=== PATIENT | female | born 1950 | race Caucasian/White ===

== ENCOUNTER 2019-12-05 14:20 | Outpatient (CLI) | payer MEDICARE, SELFPAY ==
--- NOTE | ~2019-12-05 | MM_ITS ---
EXAMINATION: MM screening stoney BI w ramya HISTORY: Screening mammogram, family history of breast cancer in her mother. TECHNIQUE: Craniocaudal and mediolateral oblique 3-D tomosynthesis images were obtained and synthetic 2-D images were generated. CAD analysis was submitted and interpreted. COMPARISON: 12/02/2018, 11/29/2017, 06/05/2017, 05/25/2017 BREAST PARENCHYMAL COMPOSITION: There are scattered areas of fibroglandular density. FINDINGS: There is a chronic area of subtle architectural distortion in the upper outer quadrant of t he right breast which is unchanged since 2016. There is no evidence of suspicious mass, calcification , or architectural distortion to suggest malignancy in either breast. There has been no suspicious in terval change. IMPRESSION: 1. No mammographic evidence of malignancy. 2. Recommend routine screening mammography in one year. BI-RADS Category 2: Benign finding(s). Reviewed, dictated and finalized at location A. [facility]
== END 2019-12-05 14:21 | disposition home or self-care (01) ==
LOC: ANHIMG 14:26
PROVIDERS: PCP Internal Medicine; Visit Provider Obstetrics & Gynecology
DX: Z12.31 Encounter for screening mammogram for malignant neoplasm of breast (principal)
CPT/HCPCS: 77063; 77067

== ENCOUNTER 2019-12-12 13:15 | Outpatient (CLI) | payer MEDICARE, SELFPAY ==
--- NOTE | ~2019-12-12 | US_ITS ---
EXAMINATION: US thyroid DATE: 12/12/2019 15:05 INDICATION: Nontoxic multinodular goiter TECHNIQUE: Multiple ultrasound images of the thyroid were obtained. COMPARISON: 12/20/2018 and 12/10/2014 FINDINGS: The right thyroid lobe measures 4.9 x 1.6 x 1.6 cm. The left thyroid lobe measures 6.4 x 2.1 x 1.9 c m. No significant interval change in multiple lateral thyroid nodules. There are few cystic or predo minantly cystic nodules in the right thyroid, the largest a simple anechoic nodule measuring 5 mm max imal diameter. There are at least 3 additional lesions measure 3 mm or smaller in maximal dimensions. No significant interval change in 3 larger nodules in the left thyroid lobe. The most cephalad is a well-defined wider than tall solid hypoechoic nodule (TI-RADS 4, moderately suspicious , FNA if >=1.5 cm, annual followup is >1 cm) which measures 2.0 x 1.1 x 1.2 cm and with previous biopsy demonstrati ng benign follicular nodule . In the inferior right thyroid lobe there is a well-defined most entire ly cystic nodule with small peripheral solid components and a couple thick internal septations (TI-RA DS 1, benign, no FNA recommended) which currently measures 2.6 x 2.2 x 2.7 cm. In the intervening mid left thyroid there is a well-defined round 10 x 9 x 9 mm solid hypoechoic nodule with shadowing mikaela pheral rim calcification, also TI-RADS 4. IMPRESSION: 1. Stable multinodular goiter with prior benign biopsy and no subsequent interval change of the only nodule meeting criteria for biopsy. Reviewed, dictated and finalized at location A. AND CREDIT MANAGER IMPRESSION: 1. Stable multinodular goiter with prior benign biopsy and no subsequent interv al change of the only nodule meeting criteria for biopsy.
== END 2019-12-12 13:16 | disposition home or self-care (01) ==
PROVIDERS: PCP Internal Medicine
DX: E04.2 Nontoxic multinodular goiter (principal)
CPT/HCPCS: 76536

== ENCOUNTER 2020-12-09 14:49 | Outpatient (CLI) | payer MEDICARE, SELFPAY ==
--- NOTE | ~2020-12-09 | MM_ITS ---
EXAMINATION: MM screening stoney BI w ramya HISTORY: Screening mammogram TECHNIQUE: Craniocaudal and mediolateral oblique 3-D tomosynthesis images were obtained and synthetic 2-D images were generated. CAD analysis was submitted and interpreted. COMPARISON: 12/05/2019, 12/02/2018 bilateral digital screening mammogram examinations 11/29/2017 diagnostic right digital mammogram 06/05/2017 diagnostic right digital mammogram and limited right breast ultrasound 05/25/2017 bilateral digital screening mammogram BREAST PARENCHYMAL COMPOSITION: The breasts are heterogeneously dense, which may obscure small masses . FINDINGS: Stable focal architectural distortion in the upper right breast on MLO view is likely relat ed to prior reportedly benign breast biopsy. There is no evidence of suspicious mass, calcification, or architectural distortion to suggest malignancy in either breast. There has been no suspicious inte rval change. IMPRESSION: 1. No mammographic evidence of malignancy. 2. Recommend routine screening mammography in one year. BI-RADS Category 2: Benign finding(s). Reviewed, dictated and finalized at location A. 2 SYSTEMS PROGRAMMER
== END 2020-12-09 14:50 | disposition home or self-care (01) ==
PROVIDERS: PCP Internal Medicine; Visit Provider Obstetrics & Gynecology
DX: Z12.31 Encounter for screening mammogram for malignant neoplasm of breast (principal)
CPT/HCPCS: 77063; 77067

== ENCOUNTER 2021-09-25 12:00 | Emergency (ER) | payer MEDICARE, SELFPAY ==
--- NOTE | ~2021-09-25 | CT_ITS ---
EXAMINATION: CT abdomen pelvis w con EXAM DATE: 09/25/2021 16:21 INDICATION: Lower abdominal pain. TECHNIQUE: Spiral CT of the abdomen and pelvis was performed following intravenous injection of 100 m L Omnipaque 350. Axial, coronal and sagittal images of the abdomen and pelvis were reviewed. The do se-length product (DLP) for this examination was 222.01 mGy-cm. The exposure was tailored according to patient size (auto mA exposure control), and iterative reconstruction (ASIR) was used as additiona l dose reduction technique. Comparison is made to prior examination from 09/09/2016. FINDINGS: The liver, spleen, adrenal glands and pancreas are unremarkable. Gallbladder is unremarkab le. No biliary obstruction. Portal and splenic veins are patent. Kidneys enhance symmetrically. T here is no hydronephrosis. The uterus is not identified and has likely been surgically resected. T he bladder is unremarkable. There is no retroperitoneal or pelvic lymphadenopathy. There is mild s cattered arteriosclerotic disease. The appendix is normal. There is moderate sigmoid diverticulosis. There is adjacent inflammation and wall thickening most likely uncomplicated diverticulitis. Inflammatory cancer not excludable. No perf oration or abscess. The stomach and small bowel are unremarkable. There is expected amount of colon ic stool. No free intraperitoneal gas. The heart is normal in size. There are no pericardial or pleural effusions. The lung bases are unremarkable. There is 8 mm sclerotic focus in the left pubis unchanged, bone island. IMPRESSION: Findings consistent with acute uncomplicated sigmoid diverticulitis. Inflammatory cancer not excludable. Reviewed, dictated and finalized at location A. 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 Inflammatory cancer not excludable.
[2021-09-25 12:44] VITALS: BP 158/85; PULSE 75; RESP 16; TEMP 36.6; O2SAT 98
--- NOTE | 2021-09-25 15:23 | ED.ABDPAIN ---
HPI - Abdominal Pain General Chief Complaint: Abdominal Pain Stated Complaint: abd pain Time Seen by Provider: 09/25/21 14:54 History of Present Illness HPI narrative: Patient is a 70-year-old female who presents ER with abdominal pain. Ongoing for the last day. Located in her lower abdomen. Feels similar to previous diverticulitis bouts. Sharp cramping pain that radiates into her back. She woke up in a pool of sweat today. Concerned she is having fevers as well. No nausea or vomiting. No known changes to diet. No diarrhea or blood in stool. Related Data Home Medications Medication Instructions Recorded Confirmed aspirin 81 mg tablet,delayed 81 mg PO DAILY 11/05/19 06/01/21 release cyclobenzaprine 10 mg tablet 10 mg PO .qhs tablet 11/05/19 01/10/21 ergocalciferol (vitamin D2) 62.5 2,500 unit PO DAILY 11/05/19 06/01/21 mcg (2,500 unit) capsule multivitamin-calcium carb chewable 1 tablet PO DAILY 11/05/19 06/01/21 tablet calcium carbonate 260 mg calcium 260 mg PO DAILY 05/11/20 06/01/21 (648 mg) tablet calcium polycarbophil 625 mg tablet 1,250 mg PO DAILY 05/11/20 06/01/21 lactobacillus combination no.9 4 4,000 mmu cells PO DAILY 05/11/20 06/01/21 billion cell capsule acyclovir 5 % topical ointment 1 applic TOPICAL 6XD 11/22/20 06/01/21 dicyclomine 10 mg capsule 10 mg PO ONCE cap 11/22/20 06/01/21 triamcinolone acetonide 0.1 % 1 applic TOPICAL .prn g 11/22/20 06/01/21 topical cream Allergies Allergy/AdvReac Type Severity Reaction Status Date / Time Penicillins Allergy Mild Rash Verified 09/25/21 15:30 silicone tape Allergy Intermediate large Uncoded 09/25/21 15:30 water blisters Review of Systems Review of Systems: All systems reviewed & are unremarkable except as noted in HPI and below Constitutional: Constitutional: Denies chills, Reports fever(s) and Denies weakness Comments: Sweats ENT: Denies nasal congestion and Denies sore throat Cardiovascular: Cardiovascular: Denies chest pain, Denies rapid heart rate and Denies radiating jaw, neck or arm pain Respiratory: Respiratory: Denies cough and Denies dyspnea Gastrointestinal: Gastrointestinal: Reports abdominal pain, Denies diarrhea, Denies nausea and Denies vomiting Genitourinary: Genitourinary: Denies nocturia and Denies dysuria PMFSH Past Medical History Medical History Hypertension IBS (irritable bowel syndrome) Thyroid goiter Surgical History Surgical History History of trigger finger left hand 3rd and 4th finger Hx of abdominoplasty Hx of bilateral cataract extraction Hx of blepharoplasty bilateral Hx of repair of right rotator cuff Hx of right breast biopsy Right excisional breast in 1992 Hx of vaginal hysterectomy Family History Family History Father Family history of alcoholism, Onset Age: 84 Mother CHF (congestive heart failure) Failure to thrive Sibling Hypertension Heart disease Family history of alcoholism CAD (coronary artery disease) PAD (peripheral artery disease) PVD (peripheral vascular disease) Arthritis Heart valve replaced AAA (abdominal aortic aneurysm) Other Breast cancer Social History Social History Smoking packs per day: 1 Smoking cigarettes per day: 20.0 Years smoked: 20 Smoking pack-years: 20.00 Smoking status: Former smoker Tobacco type: cigarettes Second hand tobacco smoke exposure: No Smoking end date: 10/15/90 Alcohol intake: current Drinks per week: 21 Alcohol use details: Cocktails and wine daily Substance use: never Exam Narrative: GENERAL: Well-appearing, well-nourished, and in no acute distress. HEAD: Normocephalic, atraumatic. CHEST: Clear to auscultation. No respiratory distress. HEART: Regular rate a
[2021-09-25] MEDS: SODIUM CHLORIDE 0.9% IV 1,000 ML 999 ML IV CONT (15:35)
[2021-09-25] MEDS: MORPHINE SULFATE (*CRX) 4 MG/ML INJ IV PUSH (15:36)
[2021-09-25 15:49] LABS: Basophils Absolute Auto 0.1 K/mm3 (0.0-0.1); Basophils Percent Auto 0.3 % (0.2-1.2); Eosinophils Absolute Auto 0.1 K/mm3 (0-0.3); Eosinophils Percent Auto 0.7 % (0-4.4); Hematocrit 37.4 % (37.0-47.0); Hemoglobin 12.6 g/dL (12.0-15.0); Immature Granulocyte Absolute 0.04 K/mm3 (0.00-0.031); Immature Granulocyte Percent A 0.3 % (0-0.5); Lymphocytes Absolute Auto 2.16 K/mm3 (0.9-3.2); Lymphocytes Percent Auto 14.3 % (18.3-44.2); Mean Corpuscular HGB Conc 33.7 g/dl (32-36); Mean Corpuscular Hemoglobin 31.3 pg (26-34); Mean Platelet Volume 9.4 fl (7.4-10.4); Monocytes Absolute Auto 1.5 K/mm3 (0.1-0.6); Monocytes Percent Auto 9.8 % (2.6-8.5); Neutrophils Absolute Auto 11.3 K/mm3 (1.3-6.7); Neutrophils Percent Auto 74.6 % (45.5-73.1); Platelet Count Result 218 k/mm3 (150-375); Red Blood Count 4.02 M/mm3 (4.2-5.4); Red Cell Distribution Width 12.5 % (11.5-14.5); White Blood Count 15.1 K/mm3 (4.5-10.0)
[2021-09-25 16:02] LABS: Alanine Aminotransferase 48 U/L (4-35); Albumin Level 4.5 g/dL (3.5-5.1); Alkaline Phosphatase 96 U/L (38-126); Anion Gap 10 mmol/L (8-16); Aspartate Amino Transferase 59 U/L (14-36); Bilirubin,Total 0.8 mg/dL (0.2-1.3); Blood Urea Nitrogen 13 mg/dL (7-17); Calcium 9.6 mg/dL (8.4-10.2); Carbon Dioxide 28 mmol/L (22-30); Chloride 99 mmol/L (98-107); Estimated CRCL calculation 51 ml/min; Estimated Glomerular Filt Rate > 60; Glucose 113 mg/dL (65-110); Potassium 3.4 mmol/L (3.4-5.0); Sodium 137 mmol/L (137-145)
== END 2021-09-25 17:02 | disposition home or self-care (01) ==
PROVIDERS: Emergency Provider Emergency Medicine; PCP Internal Medicine
DX: K57.32 Diverticulitis of large intestine without perforation or abscess without bleeding (principal); I10 Essential (primary) hypertension; K58.9 Irritable bowel syndrome, unspecified; E04.9 Nontoxic goiter, unspecified; Z98.42 Cataract extraction status, left eye; Z98.41 Cataract extraction status, right eye; Z87.891 Personal history of nicotine dependence
CPT/HCPCS: 36415; 74177; 80053; 85025; 96361; 96374; 99284; J2270; J7030; Q9967

== ENCOUNTER 2021-11-08 00:44 | Day surgery (SDC) | payer MEDICARE, SELFPAY ==
[2021-10-28 12:18] VITALS: BMI 21.7
[2021-11-08 10:28] VITALS: BP 148/89; PULSE 79; RESP 18; TEMP 37.1; O2SAT 100
[2021-11-08] MEDS: LACTATED RINGERS 1,000 ML 150 ML IV CONT (10:42)
--- NOTE | 2021-11-08 11:13 | WPDGICN ---
Assessment and Plan Assessment and plan (1) Diverticulitis: Code(s): K57.92 - Diverticulitis of intestine, part unspecified, without perforation or abscess without bleeding Status: Acute Assessment and Plan: Patient is status post recent episode of diverticulitis. Plan is for high-fiber diet at this stage. Colonoscopy will be performed to ensure resolution of infection. Further recommendations will be given after endoscopy. (2) Hemorrhoid: Code(s): K64.9 - Unspecified hemorrhoids Status: Acute Assessment and Plan: History of hemorrhoids or rectal discomfort will be reassessed at the time of endoscopy to exclude organic disease. (3) IBS (irritable bowel syndrome): Qualifiers: Irritable bowel syndrome type: with diarrhea Qualified Code(s): K58.0 - Irritable bowel syndrome with diarrhea Code(s): K58.9 - Irritable bowel syndrome without diarrhea Status: Acute Assessment and Plan: Patient with established diagnosis of IBS. Plan to continue fiber supplements. Dicyclomine antispasmodic agent intermittently may be of benefit as well. GI Consult Note Consult date/time: 11/08/21 11:13 HPI: Jade Aragon is a 70 year old female Presents for colonoscopy. Patient has a history of diverticulitis. Abdominal pain improved after antibiotic therapy. She did experience a brief bout of diarrhea. Has had occasional rectal discomfort and occasional fecal soiling. Over recent weeks has had intermittent vague diffuse abdominal pain that comes and goes but occurs daily. In the past was felt to have irritable bowel syndrome. She has had some improvement when taking dicyclomine antispasmodic agent intermittently as well as fiber supplements. Colonoscopy to be performed today because of recent diverticulitis. Review of Systems Review of Systems: All systems reviewed & are unremarkable except as noted in HPI and below PMFSH Past Medical History Medical History Hypertension IBS (irritable bowel syndrome) Thyroid goiter Surgical History Surgical History History of trigger finger left hand 3rd and 4th finger Hx of abdominoplasty Hx of bilateral cataract extraction Hx of blepharoplasty bilateral Hx of repair of right rotator cuff Hx of right breast biopsy Right excisional breast in 1992 Hx of vaginal hysterectomy Family History Family History Father Family history of alcoholism, Onset Age: 84 Mother CHF (congestive heart failure) Failure to thrive Sibling Hypertension Heart disease Family history of alcoholism CAD (coronary artery disease) PAD (peripheral artery disease) PVD (peripheral vascular disease) Arthritis Heart valve replaced AAA (abdominal aortic aneurysm) Other Breast cancer Social History Social History Smoking packs per day: 1 Smoking cigarettes per day: 20.0 Years smoked: 20 Smoking pack-years: 20.00 Smoking status: Former smoker Tobacco type: cigarettes Second hand tobacco smoke exposure: No Smoking end date: 10/15/90 Alcohol intake: current Drinks per week: 14 Alcohol use details: Cocktails and wine daily Substance use: never Substance use type: does not use Living arrangements: with family Spiritual care concerns: No Meds Home Medications and Allergies Home Medications Medication Instructions Recorded Confirmed Type aspirin 81 mg tablet,delayed 81 mg PO DAILY 11/05/19 10/28/21 History release multivitamin-calcium carb chewable 1 tablet PO DAILY 11/05/19 10/28/21 History tablet calcium carbonate 260 mg calcium 260 mg PO DAILY 05/11/20 10/28/21 History (648 mg) tablet triamcinolone acetonide 0.1 % 1 applic TOPICAL .prn g
[2021-11-08 11:46] VITALS: BP 110/67; PULSE 76; RESP 20; O2SAT 97
[2021-11-08 11:56] VITALS: BP 126/85; PULSE 73; RESP 27; O2SAT 99
== END 2021-11-08 12:11 | disposition home or self-care (01) ==
PROVIDERS: PCP Internal Medicine; Visit Provider Internal Medicine Gastroenterology
PROC: 0DJD8ZZ Inspection of Lower Intestinal Tract, Via Natural or Artificial Opening Endoscopic (ICD-10-PCS; CPT 45378; principal; 2021-11-08 11:30)
DX: Z09 Encounter for follow-up examination after completed treatment for conditions other than malignant neoplasm (principal); K58.9 Irritable bowel syndrome, unspecified; K64.8 Other hemorrhoids; K57.30 Diverticulosis of large intestine without perforation or abscess without bleeding; Z87.19 Personal history of other diseases of the digestive system; I10 Essential (primary) hypertension; E04.9 Nontoxic goiter, unspecified; Z87.891 Personal history of nicotine dependence
CPT/HCPCS: 45378; J2704; J7120

== ENCOUNTER 2021-12-26 14:50 | Outpatient (CLI) | payer MEDICARE, SELFPAY ==
--- NOTE | ~2021-12-26 | MM_ITS ---
EXAMINATION: MM screening stoney BI w ramya HISTORY: Screening mammogram, family history of breast cancer in her mother. TECHNIQUE: Craniocaudal and mediolateral oblique 3-D tomosynthesis images were obtained and synthetic 2-D images were generated. CAD analysis was submitted and interpreted. COMPARISON: 12/09/2020, 12/05/2019, 12/02/2018 BREAST PARENCHYMAL COMPOSITION: There are scattered areas of fibroglandular density. FINDINGS: There is chronic and stable architectural distortion in the upper outer quadrant of the rig ht breast at the site of prior excisional biopsy. There is no evidence of suspicious mass, calcificat ion, or architectural distortion to suggest malignancy in either breast. There has been no suspicious interval change. IMPRESSION: 1. No mammographic evidence of malignancy. 2. Recommend routine screening mammography in one year. BI-RADS Category 2: Benign finding(s). Reviewed, dictated and finalized at location A.
== END 2021-12-26 14:51 | disposition home or self-care (01) ==
LOC: ANHIMG 14:53
PROVIDERS: PCP Internal Medicine; Visit Provider Obstetrics & Gynecology
DX: Z12.31 Encounter for screening mammogram for malignant neoplasm of breast (principal)
CPT/HCPCS: 77063; 77067

== ENCOUNTER 2022-01-16 15:13 | Outpatient (CLI) | payer MEDICARE, SELFPAY ==
--- NOTE | ~2022-01-16 | US_ITS ---
EXAMINATION: US thyroid DATE: 01/16/2022 15:52 INDICATION: Multinodular goiter TECHNIQUE: Multiple ultrasound images of the thyroid were obtained. COMPARISON: 12/12/2019 FINDINGS: The right thyroid lobe measures 4.4 x 1.3 x 1.0 cm. The left thyroid lobe measures 5.8 x 2.2 x 2.2 c m. No interval change in a 5 mm wide than tall hypoechoic mixed solid and cystic nodule with smooth m argins, isoechoic solid (TI-RADS 2, not suspicious, no FNA recommended) at the superior right thyroid . There are 3 larger nodules in the left thyroid, the most cephalad a well-defined wider than tall so lid hypoechoic nodule (TI-RADS 4, moderately suspicious , FNA if >=1.5 cm, annual followup is >=1 cm) which measures 2.6 x 1.6 x 1.5 cm, increased from 2.0 x 1.2 x 1.1 cm. In the inferior right thyroid lobe there is a well-defined almost entirely cystic nodule with small peripheral solid components and a couple thick internal septations (TI-RADS 1, benign, no FNA recommended) which has decreased in si ze currently measuring 2.4 x 2.4 x 1.8 cm versus previously 2.6 x 2.2 x 2.7 cm. In the intervening mi d left thyroid there is an unchanged well-defined round 10 x 9 x 9 mm solid hypoechoic nodule with sh adowing peripheral rim calcification, also TI-RADS 4. IMPRESSION: 1. Multinodular goiter with significant interval increase in size of a now 2.6 cm TI RADS 4 left thyr oid nodule with prior biopsy demonstrated benign follicular nodule . Given the significant interval growth of greater than 20% in each dimension would consider rebiopsy. Reviewed, dictated and finalized at location B. IMPRESSION: 1. Multinodular goiter with significant interval increase in size of a now 2.6 cm TI RADS 4 left thyroid nodule with prior biopsy demonstrated benign follicu lar nodule . Given the significant interval growth of greater than 20% in each dimension would consider rebiopsy.
== END 2022-01-16 15:14 | disposition home or self-care (01) ==
LOC: ANHIMG 15:17
PROVIDERS: PCP Internal Medicine; Visit Provider Internal Medicine Endocrinology, Diabetes & Metabolism
DX: E04.2 Nontoxic multinodular goiter (principal)
CPT/HCPCS: 76536

== ENCOUNTER 2023-02-15 14:23 | Outpatient (CLI) | payer MEDICARE, SELFPAY ==
--- NOTE | ~2023-02-15 | MM_ITS ---
EXAMINATION: MM screening stoney BI w ramya HISTORY: Screening mammogram, family history of breast cancer in her mother. TECHNIQUE: Craniocaudal and mediolateral oblique 3-D tomosynthesis images were obtained and synthetic 2-D images were generated. CAD analysis was submitted and interpreted. COMPARISON: 12/26/2021, 12/09/2020, 12/05/2019 BREAST PARENCHYMAL COMPOSITION: There are scattered areas of fibroglandular density. FINDINGS: Again noted is chronic and stable architectural distortion in the upper outer quadrant of t he right breast related to prior excisional biopsy. No suspicious mass, calcification, or architectur al distortion are identified in either breast to suggest malignancy. There has been no suspicious int erval change. IMPRESSION: 1. No mammographic evidence of malignancy. 2. Recommend routine screening mammography in one year. BI-RADS Category 2: Benign finding(s). Reviewed, dictated and finalized at location A.
== END 2023-02-15 14:24 | disposition home or self-care (01) ==
LOC: ANHIMG 14:25
PROVIDERS: PCP Internal Medicine; Visit Provider Obstetrics & Gynecology
DX: Z12.31 Encounter for screening mammogram for malignant neoplasm of breast (principal)
CPT/HCPCS: 77063; 77067

== ENCOUNTER 2023-03-06 13:38 | Outpatient (CLI) | payer MEDICARE, SELFPAY ==
--- NOTE | ~2023-03-06 | US_ITS ---
EXAMINATION: US thyroid DATE: 03/06/2023 14:41 INDICATION: Nontoxic multinodular goiter. TECHNIQUE: Multiple ultrasound images of the thyroid were obtained. COMPARISON: Ultrasound 01/16/2022, 12/21/16, 12/20/18 FINDINGS: The right thyroid lobe measures 4.4 x 1.2 x 2.0 cm. The left thyroid lobe measures 5.8 x 1.5 x 2.0 c m. In the right thyroid lobe, there is a 7 mm mixed cystic and solid, hypoechoic, wider than tall no dule with smooth margin without echogenic foci (TI-RADS TR3). In the left thyroid lobe, there is a 3. 0 cm predominantly solid, hypoechoic, wider than tall nodule with smooth margin without echogenic foc i (TR4), stable from 01/16/22. In the left thyroid lobe, there is a 10 mm solid, hypoechoic, wider than tall nodule with peripheral calcifications (TR4), stable from 12/21/16. In the left thyroid lobe, ther e is a 2.3 cm mixed cystic and solid, hypoechoic, wider than tall nodule with ill-defined margin with out echogenic foci (TR3), stable from 12/21/16. IMPRESSION: 1. Stable multinodular goiter. Comparison with outside biopsy results is recommended. Ultrasound-guid ed fine-needle aspiration is recommended for the 3.0 cm nodule in superior left thyroid lobe if it agrdner s significantly grown since the most recent biopsy. Reviewed, dictated and finalized at location A. IMPRESSION: 1. Stable multinodular goiter. Comparison with outside biopsy results is recomm ended. Ultrasound-guided fine-needle aspiration is recommended for the 3.0 cm n odule in superior left thyroid lobe if it has significantly grown since the mos t recent biopsy.
== END 2023-03-06 13:39 | disposition home or self-care (01) ==
PROVIDERS: PCP Internal Medicine; Visit Provider Internal Medicine Endocrinology, Diabetes & Metabolism
DX: E04.2 Nontoxic multinodular goiter (principal)
CPT/HCPCS: 76536

== ENCOUNTER 2023-04-30 11:33 | Outpatient (CLI) | payer MEDICARE, SELFPAY ==
--- NOTE | ~2023-04-30 | XR_ITS ---
EXAM: [id number] DATE: 04/30/2023 11:57 HISTORY: Cervicalgia, RIGHT SIDE TO POSTERIOR PAIN X1 WEEK, NO INJURY . COMPARISON: None available. FINDINGS: Craniocervical association and atlantoaxial joint are aligned, with mild degenerative [place]. No prevertebral soft tissue swelling. 1 mm anterolisthesis at C3-4. 3 mm anterolisthesis of C4 on C5. Vertebral body heights are maintained. Multilevel disc space narrowing and marginal osteophytosi s, moderate at C5-6 and C6-7, large anterior bridging osteophyte at C6-7. Multilevel moderate-severe facet hypertrophy and sclerosis. 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 Multilevel moderate degenerative disc disease. Multilevel moderate-severe facet arthropathy. Reviewed, dictated and finalized at location K. 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 Multilevel moderate degen erative disc disease. Multilevel moderate-severe facet arthropathy.
== END 2023-04-30 11:34 | disposition home or self-care (01) ==
PROVIDERS: PCP Internal Medicine; Visit Provider Internal Medicine
DX: M54.2 Cervicalgia (principal)
CPT/HCPCS: 72040

== ENCOUNTER 2023-10-03 14:34 | Outpatient (CLI) | payer MEDICARE, SELFPAY ==
[2023-10-03 15:04] LABS: Appearance Urine Clear (Clear); Bacteria Urine None Seen /hpf; Bilirubin Urine Negative (Negative); Blood Urine Negative (Negative); Color Urine Yellow (Yellow); Glucose Urine UA Negative (Negative); Ketones Urine Negative (Negative); Leukocyte Esterase Ur Trace LEU/UL (NEGATIVE); Nitrate Urine Negative (Negative); Non Pathogenic Casts 0-2; Protein Urine Negative (Negative); RBC Urine 0-2 /hpf (0-2); Specific Grav Ur 1.016 (1.001-1.035); Squamous Epithelial Cell Urine None seen /hpf (Few); Urobilinogen Urine 0.2 mg/dL (<2.0); WBC Urine 0-5 /hpf (0-3); pH Urine 6.5 (5.0-9.0)
[2023-10-03 15:06] LABS: Add Urine Microscopic? YES
== END 2023-10-03 14:35 | disposition home or self-care (01) ==
LOC: ANHLAB 14:37
PROVIDERS: PCP Internal Medicine; Visit Provider Physician Assistant
DX: R30.0 Dysuria (principal)
CPT/HCPCS: 81001

== ENCOUNTER 2024-04-16 14:21 | Outpatient (CLI) | payer MEDICARE, SELFPAY ==
--- NOTE | ~2024-04-16 | MM_ITS ---
EXAMINATION: MM screening stoney BI w ramya HISTORY: Screening mammogram, family history of breast cancer in her mother. TECHNIQUE: Craniocaudal and mediolateral oblique 3-D tomosynthesis images were obtained and synthetic 2-D images were generated. CAD analysis was submitted and interpreted. COMPARISON: 02/15/2023, 12/26/2021, 12/09/2020 BREAST PARENCHYMAL COMPOSITION:Dense: The breasts are heterogeneously dense, which may obscure small masses. FINDINGS: No suspicious mass, calcification, or architectural distortion are identified in either amita ast to suggest malignancy. There has been no suspicious interval change. IMPRESSION: No mammographic evidence of malignancy. Recommend routine screening mammography in one year. BI-RADS Category 1: Negative Reviewed, dictated and finalized at location .
== END 2024-04-16 14:22 | disposition home or self-care (01) ==
LOC: ANHIMG 14:23
PROVIDERS: PCP Internal Medicine; Visit Provider Obstetrics & Gynecology
DX: Z12.31 Encounter for screening mammogram for malignant neoplasm of breast (principal)
CPT/HCPCS: 77063; 77067

== ENCOUNTER 2024-09-03 12:37 | Outpatient (CLI) | payer MEDICARE, SELFPAY ==
--- NOTE | ~2024-09-03 | MR_ITS ---
EXAMINATION: MR abdomen wo/w con DATE: 09/03/2024 13:26 INDICATION: Other specified disorders of muscle. Bowel problems. TECHNIQUE: Magnetic resonance imaging (MRI) of the abdomen was performed without and with 12 mL Multi Josh intravenous contrast. COMPARISON: CT abdomen and pelvis 09/25/2021 FINDINGS: The liver is normal. The gallbladder is contracted. The common duct is normal and measures 7 mm. The spleen, pancreas, adrenal glands, and right kidney are normal. There is a 6 mm cyst in left kidney. T here are no dilated loops of bowel. There is diverticulosis of the colon without evidence of divertic ulitis. There are no pathologically enlarged lymph nodes. There is no free intraperitoneal fluid. IMPRESSION: 1. No significant abnormality. Reviewed, dictated and finalized at location A. 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
== END 2024-09-03 12:38 | disposition home or self-care (01) ==
PROVIDERS: PCP Internal Medicine; Visit Provider Internal Medicine Gastroenterology
DX: M62.89 Other specified disorders of muscle (principal)
CPT/HCPCS: 74183; A9577

== ENCOUNTER 2025-02-20 13:33 | Outpatient (CLI) | payer MEDICARE, SELFPAY ==
--- NOTE | ~2025-02-20 | US_ITS ---
EXAMINATION: US thyroid DATE: 02/20/2025 14:20 INDICATION: Nontoxic goiter TECHNIQUE: Multiple ultrasound images of the thyroid were obtained. COMPARISON: 03/06/2023 FINDINGS: The right thyroid lobe measures 4.2 x 1.7 x 1.7 cm. Within the upper pole of the right lobe of the thyroid gland is a 4.3 x 3.2 x 3.4 mm nodule: Composition - spongiform Echogenicity - hypoechoic Shape - wider than tall Margin - smooth Echogenic foci - none. = TR2 not suspicious. The left thyroid lobe measures 2.7 x 1.6 x 2.2 cm. Within the upper pole of the left lobe of the thyroid gland is a 26 x 16 x 22 mm nodule: Composition -mixed cystic and solid (1) Echogenicity -anechoic Shape - wider than tall Margin - smooth Echogenic foci - none. = TR 1, benign Within the lower pole of the left lobe of the thyroid gland is a 9.8 x 10.7 x 10.1 mm nodule: Composition -mixed cystic and solid (1) Echogenicity -anechoic Shape - wider than tall Margin - smooth Echogenic foci -rim calcifications (2) = TR3 Mildly suspicious Greater than or equal to 15 mm: Follow-up Greater than or equal to 25 mm: FNA Within the lower pole of the left lobe of the thyroid gland is a 9.9 x 17 x 19 mm nodule: Composition -mixed cystic and solid (1) Echogenicity -anechoic Shape - wider than tall Margin -ill-defined Echogenic foci -none = TR 1, benign The isthmus measures 0.2cm in anterior to posterior dimension. There is normal echotexture and echogenicity throughout the thyroid gland. No discrete nodules identi fied. Normal vascular flow is present. IMPRESSION: TR 3 nodule within the lower pole of the left lobe of the thyroid gland which does not meet size crit eria for either follow-up or FNA. While follow-up is not recommended, it may be performed. Reviewed, dictated and finalized at location A. IMPRESSION: TR 3 nodule within the lower pole of the left lobe of the thyroid gland which d oes not meet size criteria for either follow-up or FNA. While follow-up is not recommended, it may be performed.
--- OUTSIDE RECORDS SUMMARY | 2025-02-20 13:37 | XMS_ITS | Encounter Summary ---
Author Organization [facility] Address [address] [place] [address] Care Team Providers Care Middle [employer] English Teacher Name Role Phone Darrel Castelan Primary Care Provider [phone] Encounter Details Date Type Department Care Team (Late st Contact Info) Description 04/09/2023 Lab Requisition [facility] - DermPath Lab [address] 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 Gender Identity Not on file Sexual Orientation Not on file documented as of this encounter Plan of Treatment Not on file documented as of this encounter Procedures Procedure Name Priority Date/Time Associated Diagnosis Comments DERMATOPATHOLOGY Routine 04/09/2023 10:5 4 AM CDT documented in this encounter Results * DERMATOPATHOLOGY (04/09/2023 10:54 AM CDT) Case Report Dermatopathology Report Case: [id number] Authorizing Provider: Dina Melendez DO Collected: 04/09/2023 10:54 AM Ordering Location: [facility] DermPath Lab Received: 04/10/2023 03:21 PM Pathologist: Denice Weaver MD Specimen: Skin, mid upper forehead 3:59 PM CDT DERMATOPATHOLOGY LABORATORY Final Diagnosis Specimen A. SKIN, mid upper forehead: ACTINIC KERATOSIS, PIGMENTED (L57.0) (see microscopic description) 3:59 PM CDT DERMATOPATHOLOGY LABORATORY Clinical History SK VS LENT R/O ATYPIA 3:59 PM CDT DERMATOPATHOLOGY LABORATORY Gross Description Specimen A: Received is one formalin filled container labeled with the patient's name and designated mid upper forehead. The specimen consists of a shave biopsy measuring 3x3x1 mm. Jar 0. 3:59 PM CDT DERMATOPATHOLOGY LABORATORY Microscopic Description Specimen A. SKIN, mid upper forehead: There is hyperkeratosis. Along the undersurface of the epidermis, there are buds of atypical keratinocytes in a disorderly arrangement. There is prominent pigmentation in some of the keratinocytes. 3:59 PM CDT DERMATOPATHOLOGY LABORATORY Disclaimer An external and internal positive and negative controls are appropriate for the histochemical, immunohistochemical and immunofluorescence stain(s) in this case (if any), except where stated explicitly. The performance characteristics of the stain(s) cited in this report were developed and its performance characteristic determined by the Dermatopathology Laboratory at [facility], directed by Dr. Harlan Peralta. These tests need not be, and therefore are not, approved by the [place] Food and Drug Administration. The tests are used for clinical purposes. Billing Codes Specimen Charges Stain Charges 53752 1 3 3:59 PM CDT DERMATOPATHOLOGY LABORATORY Embedded Images 3 3:59 PM CDT DERMATOPATHOLOGY LABORATORY Pathology/Cytolo gy TISSUE SPECIMEN FROM SKIN / Unknown 04/09/2023 10:54 AM CDT 04/10/2023 3:21 PM CDT us Dina Melendez DO LAB - PATHOLOGY/CYTOLOGY ORDERABLES Final Result DERMATOPATHOLOGY LABORATORY [facility] - Department of Dermatology [facility] [place] [address] [facility] [phone] documented in this encounter Visit Diagnoses Not on filedocumented in this encounter Care Teams Middle [employer] English Teacher Relationship Specialty Start Date End Date Darrel Castelan DO [address] [facility] [address] [place] [address] PCP - General 07/06/15 documented as of this encounter
--- OUTSIDE RECORDS SUMMARY | 2025-02-20 13:37 | XMS_ITS | Clinical Summary ---
Author Organization [facility] Medical Office Building [facility] Address [address] [place] [address] Care Team Providers Care Grape Crusher Name Role Phone Darrel Castelan MD Primary Care Provider [phone] Felix Hill MD Unavailable [phone] Vijay Velázquez MD Unavailable [phone] Daniel Dyer MD Unavailable [phone] Allergies Active Allergy Reactions Criticality Noted Date Comments Adhesive Tape-Silicones Blisters High 03/13/2019 Penicillins Rash Medium Medications carvedilol (COREG) 6.25 mg tablet take 1 tablet by oral route 2 times every day with food 0 0 7 Active Additional Information Patient taking differently:6.25 mgoral 2 times daily with meals (bkfst, dinner), Indications: hypertension, Informant: Self, Reported on 02/26/2023 aspirin (ASPIR-81) 81 mg tablet take 1 tablet by oral route every day 0 0 7 Active Additional Information Patient taking differently:81 mgoral Nightly, Indications: Myocardial Reinfarction Prevention, Informant: Self, Reported on 02/26/2023 fosinopril (MONOPRIL) 10 mg tablet take 1 tablet by oral route every day 0 0 7 Active Additional Information Patient taking differently:10 mgoral 2 times daily, Indications: hypertension, Informant: Self, Reported on 02/26/2023 cholecalciferol (VITAMIN D-3) 5,000 unit capsule 0 0 7 Active Additional Information Patient taking differently: 5,000 Units oral Every morning, Indications: Vitamin D Deficiency, Informant: Self, Reported on 09/13/2023 Lactobacillus acidophilus capsule 0 0 7 Active Additional Information Patient taking differently: 1 tablet oral Every morning, Informant: Self, Reported on 09/13/2023 calcium carbonate (OS-BRENDA) 1,500 mg (600 mg of elemental calcium) tablet 0 0 7 Active Additional Information Patient taking differently: 600 mg of elemental calcium oral 2 times daily, Informant: Self, Reported on 09/13/2023 acyclovir (ZOVIRAX) 5 % ointment Apply 1 Application topically 3 (three) times a day as needed 0 Active multivitamin capsule Take 1 capsule by mouth every morning Active acetaminophen 500 mg capsuleIndicati ons:Pain Take 2 capsules (1,000 mg total) by mouth every 6 (six) hours 3 Active Additional Information Patient not taking.Reported on 10/30/2023 ibuprofen (ADVIL,MOTRIN) 600 mg tabletIndicatio ns:Pain Take 1 tablet (600 mg total) by mouth every 8 (eight) hours 3 Active Additional Information Patient not taking.Reported on 10/30/2023 psyllium, aspartame, SF (METAMUCIL SF) 3.4 gram packet Take 1 packet by mouth 2 (two) times a day 60 packet 3 Active oxyCODONE (ROXICODONE) 5 mg immediate release tabletIndicatio ns:Pain Take 1 tablet (5 mg total) by mouth every 4 (four) hours as needed for pain 15 tablet 3 Active Additional Information Patient not taking.Reported on 10/30/2023 Active Problems Problem Noted Date Diagnosed Date Acute postoperative abdominal pain 09/25/2023 Diverticulitis 08/17/2023 Traumatic complete tear of right rotator cuff Overview (01/16/2019): Added automatically from request for surgery [id number] 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 Overview (01/19/2017): Nontoxic multinodular goiter Lentigo 02/19/2014 Keratosis, senilis 02/19/2014 Dermatochalasis 11/20/2012 Peripheral nerve disease 11/20/2012 Surgical History Surgery Date Site/Laterality Comments BREAST BIOPSY 10/15/1992 - 10/14/1993 HYSTERECTOMY 10/15/1994 - 10/14/1995 ABDOMINOPLASTY 10/15/1998 - 10/14/1999 BLEPHAROPTOSIS REPAIR 10/15/2015 - 10/14/2016 COLONOSCOPY CATARACT EXTRACTION EXTRACAPSULAR W/ INTRAOCULAR LENS IMPLANTATION TRIGGER FINGER RELEASE SKIN CANCER EXCISION COLONOSCOPY 10/15/2016 - 10/14/2017 SIGMOIDECTOMY 09/14/2023 - 10/14/2023 laparoscopic sigmoidectomy WITH MOBILIZATION OF THE SPLENIC FLEXURE Medical History Medical History Date Comments Hypertension Lumbar herniated disc Cataract Hemorrhoids Abdominal pain Fecal incontinence Rectal bleeding Rectal pain Diarrhea Hypertension Arthritis Neuropathy Family History Medical History Relation Name Comments Coronary artery disease Brother 1 Acosta nary artery disease; Coronary artery disease Brother 2 Hypertension Father Hypertension; Prostate cancer Father Cancer, pros [place]; Heart failure Mother Hypertension Mother Hypertension; Relation Name Status Comments Brother 1 Brother 2 Father Mother Social History Tobacco Use Types Packs/Day Years Used Date Smoking Tobacco: Former Cigarettes Q uit: 1992 Smokeless Tobacco: Never Tobacco Cessation:Counseling Given: Not Answered Alcohol Use Standard Drinks/Week Comments Yes 14 (1 standard drink = 0.6 oz pu re alcohol) AUDIT-C Answer Date Recorded Q1: How often do you have a drink containing alcohol? 4 or more times a week 09/13/2023 Q2: How many drinks containi ng alcohol do you have on a typical day when you are drinking? 1 or 2 Q3: How often do you have si x or more drinks on one occasion? Never 09/13/2023 Personal Safety Answer Date Recorded Have you ever been in or are you currently in a harmful physical or emotional relationship or is someone making you feel afraid or unsafe? Denies 09/25/2023 Comments No Sex and Gender Information Value Date Recorded Sex Assigned at Not on file Legal Sex Female 8:46 AM EVALUATION ANALYST Gender Identity Not on file Sexual Orientation Not on file Obstetrics History Last Filed Vital Signs Vital Sign Reading Time Taken Comments Blood Pressure 131/77 10/30/2023 12:55 PM EVALUATION ANALYST Pulse 65 10/30/2023 12:55 PM EVALUATION ANALYST Temperature 35.8 C (96.5 F) 10/30/2023 12:55 PM EVALUATION ANALYST Respiratory Rate 16 09/28/2023 8:26 AM EVALUATION ANALYST Oxygen Saturation 98% 09/28/2023 11:55 AM EVALUATION ANALYST Inhaled Oxygen Concentration - - Weight 60.6 kg (133 lb 9.6 oz) 09/13/2023 12:35 PM EVALUATION ANALYST Height 162.6 cm (5' 4 ) 09/13/2023 12:35 PM EVALUATION ANALYST Body Mass Index 22.93 09/13/2023 12:35 PM EVALUATION ANALYST Plan of Treatment Health Maintenance Due Date Last Done Comments Breast Cancer Screening-Mammogram 1950 Colon Cancer Screening-Colonoscopy 1950 Depression Screening 1950 Hepatitis C Screening 1950 Osteoporosis Screening-Bone Density Scan 1950 DTaP/Tdap/Td Vaccine (1 - Tdap) 1961 Hepatitis B Screening 1968 Pneumococcal vaccine 65+ (1 of 1 - PCV) 2000 Well Visit 65+ 12/25/2015 Influenza Vaccine (#1) 2024 9, 07/08/2018, 08/15/2017, Additional history exists Fall Risk Assessment 09/28/2024 09/28/2023 Zoster Vaccine Completed 11/14/2019, 07/16, 12/06/2012 Medical Devices Implanted Type Area Industrial Sewer Device Identifier Shelf Expiration Date Model / Serial / Lot [employer] Ar-[id number] Bcm Swivelock 4.75mm 24.5mm Self Punch Vent Shoulder [place] Suture - Sn/A - [id number] Implanted:Qty: 1 on 02/27/2019 by Lonnie Bettencourt MD at [facility] Right: Shoulder [employer] 11/14/2020 [id number] / N/A / Insurance AETNA MEDICARE AETNA MEDICARE AETNA MEDICARE Advance Directives For more information, please contact: [phone] * Full Code (Latest Code Status on File) Date Activated Date Inactivated Comments 09/25/2023 12:50 PM 09/28/2023 8:01 PM Care Teams Grape Crusher Relationship Specialty Start Date End Date Darrel Castelan MD [address] [place] [address] PCP - General 01/12/17 Felix Hill MD [id number] [place] [address] Surgeon Colon and Rectal Surgery 07/25/23 Vijay Velázquez MD [id number] [place] [address] Consulting Physician Urology 08/19/23 Daniel Dyer MD [address] [facility] [address] [place] [address] Gastroenterology 09/25/23
--- OUTSIDE RECORDS SUMMARY | 2025-02-20 13:37 | XMS_ITS | Clinical Summary ---
Author Organization [facility] Address [address] [place] [address] Care Team Providers Care Cigar Packer And Sorter Name Role Phone Darrel Castelan Calos MELO Primary Care Provider [phone] Source Comments [facility],non-owned Affiliates and Associated Physician Practices is amultiple site organization consisting of ambulatory clinics and hospital sitesin [place], [place], [place] and [place]. This disclosure is being madepursuant to the Care Everywhere program and may not contain all information available regarding this patient. Last updated 18.[facility] Allergies Active Allergy Reactions Criticality Noted Date Comments Adhesive Sensitivity Rash High 03/13/2019 Penicillins Rash Medium 08/30/2015 Medications * Be aware that medications may not be up to date on this document. Alwaysverify current medications with the patient. triamcinolone acetonide (KENALOG) 0.1 % ointment 1 tube 2 7 Active Additional Information Patient taking differently: 1 Each Topical 2 TIMES DAILY, Reported on 07/24/2022 fosinopril (MONOPRIL) 10 MG tablet Take 1 (one) tablet by mouth 2 times daily 8 Active carvedilol (COREG) 6.25 MG tablet Take 1 (one) tablet by mouth 2 times daily with morning and evening meal 8 Active dicyclomine (BENTYL) 10 MG capsule Take 1 (one) capsule by mouth 2 times daily 0 Active acyclovir (ZOVIRAX) 5 % ointment Apply 1 applicator to affected area 3 times daily as needed 0 Active predniSONE (Deltasone) 10 MG tablet Take 1 (one) tablet by mouth once daily 3 Active aspirin (Aspirin) 81 MG chew tablet 1 (one) tablet once daily Active calcium carbonate (Caltrate) 600 MG tablet Take 1 (one) tablet by mouth daily with food Active lactobacillus extra strength (Florajen) capsule Take 1 (one) capsule by mouth once daily Active Magnesium 200 MG TABS Take 1 tablet by mouth once daily Active vitamin D3 (Cholecalcifero l) 25 MCG (1000 UNITS) tablet Take 1 (one) tablet by mouth once daily Active Other Take 1 Each by mouth once daily Vital Protein Collagen Active Active Problems Problem Noted Date Diagnosed Date 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 (FLUAD QUADRIVALENT; 65Y+) (AIIV4) 07/06/2020 Zoster Hzv Vacc Recombinant Inj Im 11/14/2019, Family History Medical History Relation Name Comments Arthritis - Osteo Brother CAD (Coronary Artery Disease) Brother Hypertension Brother Arthritis - Osteo Father Cancer - Breast Father Hypertension Father Osteoporosis Father Psoriasis Father Hypertension Mother Arthritis - Rheumatoid Neg Hx Asthma Neg Hx Migraine Neg Hx Seizures Neg Hx Thyroid Disease Neg Hx Relation Name Status Comments Brother Father Mother Social History Tobacco Use Types Packs/Day Years Used Date Smoking Tobacco: Former Smokeless Tobacco: Former Alcohol Use Standard Drinks/Week Comments Yes 0 (1 standard drink = 0.6 oz pur e alcohol) Comments No Sex and Gender Information Value Date Recorded Sex Assigned at Not on file Legal Sex Female 5:27 PM WATER AND 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 Gender Identity Not on file Sexual Orientation Not on file Last Filed Vital Signs Vital Sign Reading Time Taken Comments Blood Pressure 128/84 07/24/2022 10:34 AM CDT Pulse - - Temperature - - Respiratory Rate - - Oxygen Saturation - - Inhaled Oxygen Concentration - - Weight 59.9 kg (132 lb) 07/24/2022 10:34 AM CDT Height 165.1 cm (5' 5 ) 07/24/2022 10:34 AM CDT Body Mass Index 21.97 07/24/2022 10:34 AM CDT Plan of Treatment Health Maintenance Due Date Last Done Comments COLOGUARD (AGES 45-75) - COLON CA SCREENING 1950 COLON MONITORING 1950 COLONOSCOPY - COLON CA SCREENING 1950 CT COLONOGRAPHY - COLON CA SCREENING 1950 Colorectal Cancer Screening 1950 FIT - COLON CA SCREENING 1950 FLEX SIG - COLON CA SCREENING 1950 LIPID TESTING 1950 HEPATITIS C SCREENING 12/19/1968 DTAP/TDAP/TD VACCINES (1 - Tdap) 1969 PNEUMOCOCCAL VACCINE 50+ (1 of 1 - PCV) 2000 MAMMOGRAM 03/21/2024 03/21/2022 (Done Outside Per Report) COVID-19 VACCINE (1 - 2023-2 5 season) 2024 DEPRESSION SCREENING 10/15/2024 MEDICARE AWV CALENDAR YEAR 2024 INFLUENZA VACCINE (Season Ended) 2025 07/06/2020 Respiratory Syncytial Virus (RSV) Vaccine Pt: or over 60 yrs (1 - 1-dose 75+ series) 2025 ZOSTER VACCINE Completed 11/14/2019, 08/12/2019 BONE DENSITY TESTING Completed 05/09/2022 (Done Outside Per Report) HEPATITIS B VACCINE Aged Out No longe r eligible based on patient's age to complete this topic HIB VACCINE Aged Out No longer eligi ble based on patient's age to complete this topic HPV VACCINE Aged Out No longer eligi ble based on patient's age to complete this topic MENINGOCOCCAL (Group B) VACCINE SHARED DECISION-MAKING Aged Out No longer eligible based on patient's age to complete this topic MENINGOCOCCAL GROUPS A/C/Y/W VACCINE Aged Out No longer eligible based on patient's age to complete this topic Insurance [facility] MANAGED MEDICARE ADV [facility] MEDICARE ADV Care Teams Cigar Packer And Sorter Relationship Specialty Start Date End Date Darrel Castelan DO [address] [facility] [address] [place] [address] PCP - General 07/06/15
--- OUTSIDE RECORDS SUMMARY | 2025-02-20 13:37 | XMS_ITS | Referral Summary ---
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 Overview (01/19/2017): Nontoxic multinodular goiter Lentigo 02/19/2014 Keratosis, senilis 02/19/2014 Dermatochalasis 11/20/2012 Peripheral nerve disease 11/20/2012 Social History Tobacco Use Types Packs/Day Years [...] on file Legal Sex Female 8:46 AM BROTH MIXER Gender Identity Not on file Sexual Orientation Not on file Last Filed Vital Signs Vital Sign Reading Time Taken Comments Blood Pressure 131/77 10/30/2023 12:55 PM BROTH MIXER Pulse 65 10/30/2023 12:55 PM BROTH MIXER Temperature 35.8 C (96.5 F) 10/30/2023 12:55 PM BROTH MIXER Respiratory Rate 16 09/28/2023 8:26 AM BROTH MIXER Oxygen Saturation 98% 09/28/2023 11:55 AM BROTH MIXER Inhaled Oxygen Concentration - - Weight 60.6 kg (133 lb 9.6 oz) 09/13/2023 12:35 PM BROTH MIXER Height 162.6 cm (5' 4 ) 09/13/2023 12:35 PM BROTH MIXER Body Mass Index 22.93 09/13/2023 12:35 PM BROTH MIXER Plan of Treatment Not on file Medical Devices Implanted Type Area Barrel Polisher Device Identifier Shelf Expiration Date Model / Serial / Lot [employer] Ar-2324 Bcm Swivelock 4.75mm 24.5mm Self Punch Vent Shoulder [place] Suture - Sn/A - [id number] Implanted:Qty: 1 on 02/27/2019 by Lonnie Bettencourt MD at [facility] Right: Shoulder [employer] 11/14/2020 [id number] / N/A / Insurance AETNA MEDICARE Advance Directives For more information, please contact: [phone] * Full Code (Latest Code Status on File) Date Activated Date Inactivated Comments 09/25/2023 12:50 PM 09/28/2023 8:01 PM Care Teams Sheet Mill Supervisor Relationship Specialty Start Date End Date Darrel Castelan MD [address] [facility] [address] [place] [address] PCP - General 01/12/17 Felix Hill MD [address] [facility] [phone] [place] [address] Surgeon Colon and Rectal Surgery 07/25/23 Vijay Velázquez MD [address] [facility] [phone] [place] [address] Consulting Physician Urology 08/19/23 Daniel Dyer MD [address] [facility] [address] [facility] [address] [place] [address] Gastroenterology 09/25/23
== END 2025-02-20 13:34 | disposition home or self-care (01) ==
PROVIDERS: PCP Internal Medicine; Visit Provider Nurse Practitioner
DX: E04.1 Nontoxic single thyroid nodule (principal)
CPT/HCPCS: 76536

== ENCOUNTER 2025-05-07 14:45 | Outpatient (CLI) | payer MEDICARE, SELFPAY ==
--- NOTE | ~2025-05-07 | MM_ITS ---
EXAMINATION: MM screening stoney BI w ramya HISTORY: Screening TECHNIQUE: Craniocaudal and mediolateral oblique 3-D tomosynthesis images were obtained and synthetic 2-D images were generated. CAD analysis was submitted and interpreted. COMPARISON: Comparison to multiple prior studies sequentially, with oldest reviewed study dated 12/02. BREAST PARENCHYMAL COMPOSITION: The breasts are heterogeneously dense, which may obscure small masses . FINDINGS: There is no evidence of suspicious mass, calcification, or architectural distortion to sug gest malignancy in either breast. IMPRESSION: 1. No mammographic evidence of malignancy. 2. Recommend routine screening mammography in one year. BI-RADS Category 1: Negative Reviewed, dictated and finalized at location B.
--- OUTSIDE RECORDS SUMMARY | 2025-05-07 14:50 | XMS_ITS | Clinical Summary ---
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 [...] on file Legal Sex Female 8:46 AM HEEL SEAT LASTER Gender Identity Not on file Sexual Orientation Not on file Obstetrics History Last Filed Vital Signs Vital Sign Reading Time Taken Comments Blood Pressure 131/77 10/30/2023 12:55 PM HEEL SEAT LASTER Pulse 65 10/30/2023 12:55 PM HEEL SEAT LASTER Temperature 35.8 C (96.5 F) 10/30/2023 12:55 PM HEEL SEAT LASTER Respiratory Rate 16 09/28/2023 8:26 AM HEEL SEAT LASTER Oxygen Saturation 98% 09/28/2023 11:55 AM HEEL SEAT LASTER Inhaled Oxygen Concentration - - Weight 60.6 kg (133 lb 9.6 oz) 09/13/2023 12:35 PM HEEL SEAT LASTER Height 162.6 cm (5' 4) 09/13/2023 12:35 PM HEEL SEAT LASTER Body Mass Index 22.93 09/13/2023 12:35 PM HEEL SEAT LASTER Plan of Treatment Health Maintenance Due Date Last Done Comments Breast Cancer Screening-Mammogram 1950 Colon Cancer Screening-Colonoscopy 1950 Depression Screening 1950 Hepatitis C Screening 1950 Osteoporosis Screening-Bone Density Scan 1950 DTaP/Tdap/Td Vaccine (1 - Tdap) 1961 Hepatitis B Screening 1968 Pneumococcal vaccine 65+ (1 of 1 - PCV) 2000 Well Visit 65+ 12/25/2015 Fall Risk Assessment 09/28/2024 09/28/2023 Influenza Vaccine (#1) 2025 9, 07/08/2018, 08/15/2017, Additional history exists Zoster Vaccine Completed 11/14/2019, 07/16, 12/06/2012 Medical Devices Implanted Type Area Anatomy Professor Device Identifier Shelf Expiration Date Model / Serial / Lot [employer] Ar-2324 Bcm Swivelock 4.75mm 24.5mm Self Punch Vent Shoulder [place] Suture - Sn/A - [id number] Implanted:Qty: 1 on 02/27/2019 by Lonnie Bettencourt MD at [facility] Right: Shoulder [employer] 11/14/2020 [id number] / N/A / Insurance AETNA MEDICARE AETNA MEDICARE AETNA MEDICARE Advance Directives For more information, please contact: [phone] * Full Code (Latest Code Status on File) Date Activated Date Inactivated Comments 09/25/2023 12:50 PM 09/28/2023 8:01 PM Care Teams Comfort Station Supervisor Relationship Specialty Start Date End Date Darrel Castelan MD [address] [place] [address] PCP - General 01/12/17 Felix Hill MD [phone] [place] [address] Surgeon Colon and Rectal Surgery 07/25/23 Vijay Velázquez MD [address] [phone] [place] [address] Consulting Physician Urology 08/19/23 Daniel Dyer MD [address] [facility] [address] [place] [address] Gastroenterology 09/25/23
--- OUTSIDE RECORDS SUMMARY | 2025-05-07 14:50 | XMS_ITS | Referral Summary ---
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 [...] on file Legal Sex Female 8:46 AM FINANCE ANALYST Gender Identity Not on file Sexual Orientation Not on file Last Filed Vital Signs Vital Sign Reading Time Taken Comments Blood Pressure 131/77 10/30/2023 12:55 PM FINANCE ANALYST Pulse 65 10/30/2023 12:55 PM FINANCE ANALYST Temperature 35.8 C (96.5 F) 10/30/2023 12:55 PM FINANCE ANALYST Respiratory Rate 16 09/28/2023 8:26 AM FINANCE ANALYST Oxygen Saturation 98% 09/28/2023 11:55 AM FINANCE ANALYST Inhaled Oxygen Concentration - - Weight 60.6 kg (133 lb 9.6 oz) 09/13/2023 12:35 PM FINANCE ANALYST Height 162.6 cm (5' 4) 09/13/2023 12:35 PM FINANCE ANALYST Body Mass Index 22.93 09/13/2023 12:35 PM FINANCE ANALYST Plan of Treatment Not on file Medical Devices Implanted Type Area Patient Attendant Device Identifier Shelf Expiration Date Model / Serial / Lot [employer] Ar-2324 Bcm Swivelock 4.75mm 24.5mm Self Punch Vent Shoulder [place] Suture - Sn/A - [id number] Implanted:Qty: 1 on 02/27/2019 by Lonnie Bettencourt MD at [facility] Right: Shoulder [employer] 11/14/2020 [id number] / N/A / Insurance A[facility]NA [facility]ICARE [facility] Address: [facility] [id number] [place] [address] Advance Directives For more information, please contact: [phone] * Full Code (Latest Code Status on File) Date Activated Date Inactivated Comments 09/25/2023 12:50 PM 09/28/2023 8:01 PM Care Teams Cvt Rn Relationship Specialty Start Date End Date Darrel Castelan MD [address] [facility] [address] [place] [address] PCP - General 01/12/17 Felix Hill MD [address] [facility] [phone] [place] [address] Surgeon Colon and Rectal Surgery 07/25/23 Vijay Velázquez MD [address] [facility] [phone] [place] [address] Consulting Physician Urology 08/19/23 Daniel Dyer MD [address] [facility] [address] [facility] [address] [place] [address] Gastroenterology 09/25/23
--- OUTSIDE RECORDS SUMMARY | 2025-05-07 14:50 | XMS_ITS | Clinical Summary ---
Author Organization [facility] [employer] Address [address] [place] [address] Care Team Providers Care Raw Cheese Worker Name Role Phone Charles Gordon Primary Care Provider Source Comments [facility],non-owned Affiliates and Associated Physician Practices is amultiple site organization consisting of ambulatory clinics and hospital sitesin [place], [place], [place] and [place]. This disclosure is being madepursuant to the Care Everywhere program and may not contain all information available regarding this patient. 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 Encounters Date Type Department Care Team Description 04/21/2025 Travel from Last 3 Months Immunizations Immunization Administration Dates Next Due INFLUENZA [...] on file Legal Sex Female 5:27 PM MANAGER SOCIAL RESPONSIBILITY Gender Identity Not on file Sexual Orientation Not on file Last Filed Vital Signs Vital Sign Reading Time Taken Comments Blood Pressure 128/84 07/24/2022 10:34 AM CDT Pulse - - Temperature - - Respiratory Rate - - Oxygen Saturation - - Inhaled Oxygen Concentration - - Weight 59.9 kg (132 lb) 07/24/2022 10:34 AM CDT Height 165.1 cm (5' 5) 07/24/2022 10:34 AM CDT Body Mass Index 21.97 07/24/2022 10:34 AM CDT Plan of Treatment Upcoming Encounters Date Type Department Care Team (Late st Contact Info) Description 07/20/2025 2:20 PM CDT Office Visit [facility] - CERTIFICATION ENGINEER [address] [place] [address] Karla Strong MD [address] [facility] [address] [place] [address] Health Maintenance Due Date Last Done Comments [...] MAMMOGRAM 03/21/2024 03/21/2022 (Done Outside Per Report) DEPRESSION SCREENING 10/15/2024 MEDICARE AWV CALENDAR YEAR 2024 COVID-19 VACCINE ( season) 2024 07/01/2024, 07/06/2023, 07/11/2022, Additional history exists INFLUENZA VACCINE (#1) 2025 , 06/28/2023, 06/20/2022, Additional history exists Respiratory Syncytial Virus (RSV) Vaccine Pt: or [...] patient's age to complete this topic Insurance [facility] [address] [facility] MEDICARE ADV Care Teams Raw Cheese Worker Relationship Specialty Start Date End Date Charles Gordon DO [address] [address] PCP - General Internal Medicine 04/21/25
--- OUTSIDE RECORDS SUMMARY | 2025-05-07 14:50 | XMS_ITS | Encounter Summary ---
Author Organization [facility] Address [address] [place] [address] Care Team Providers Care Presales Senior Specialist Name Role Phone Darrel Castelan DO Primary Care Provider [phone] Charles Gordon Calos DO Primary Care Provider [phone] Encounter Details Date Type Department Care Team (Late Contact Info) Description 04/09/2023 Lab Requisition [facility] - DermPath Lab [address] [facility], [place] [address] Dina Melendez DO [address] [facility] [address] [place] [address] Social History Tobacco Use Types Packs/Day Years Used Date Smoking Tobacco: Former Smokeless Tobacco: Former Alcohol Use Standard Drinks/Week Comments Yes 0 (1 standard drink = 0.6 oz pur e alcohol) Comments No Sex and Gender Information Value Date Recorded Sex Assigned at Not on file Legal Sex Female 5:27 PM 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 Gender Identity Not on file Sexual Orientation Not on file documented as of this encounter Plan of Treatment Upcoming Encounters Date Type Department Care Team (Late Contact Info) Description 07/20/2025 2:20 PM CDT Office Visit [facility] - TURNSTILE COLLECTOR [address] [facility] [address] [place] [address] Karla Strong MD [address] [facility] [address] [place] [address] documented as of this encounter Procedures Procedure Name Priority Date/Time Associated Diagnosis Comments DERMATOPATHOLOGY Routine 04/09/2023 10:5 4 AM CDT documented in this encounter Results * DERMATOPATHOLOGY (04/09/2023 10:54 AM CDT) Case Report Dermatopathology Report Case: [id number] Authorizing Provider: Dina Melendez DO Collected: 04/09/2023 10:54 AM Ordering Location: [facility] DermPath Lab Received: 04/10/2023 03:21 PM Pathologist: Denice Weaver MD Specimen: Skin, mid upper forehead 3:59 PM CDT DERMATOPATHOLOGY LABORATORY Final Diagnosis Specimen A. 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 Harlan Peralta. These tests need not be, and therefore are not, approved by the [place] Food and Drug Administration. The tests are used for clinical purposes. Billing Codes Specimen Charges Stain Charges 96634 1 3 3:59 PM CDT DERMATOPATHOLOGY LABORATORY Embedded Images 3 3:59 PM CDT DERMATOPATHOLOGY LABORATORY Pathology/Cytolo gy TISSUE SPECIMEN FROM SKIN / Unknown 04/09/2023 10:54 AM CDT 04/10/2023 3:21 PM CDT us Dina Melendez DO LAB - PATHOLOGY/CYTOLOGY ORDERABLES Final Result DERMATOPATHOLOGY LABORATORY [facility] - Department of Dermatology [facility] Medicine [address] [place] [address], [address] [phone] documented in this encounter Visit Diagnoses Not on filedocumented in this encounter Care Teams Presales Senior Specialist Relationship Specialty Start Date End Date Darrel Castelan DO [address] [place] [address] PCP - General 07/06/15 04/20/25 Charles Gordon DO [address] [place] [address] PCP - General Internal Medicine 04/21/25 documented as of this encounter
== END 2025-05-07 14:46 | disposition home or self-care (01) ==
LOC: ANHIMG 14:47
PROVIDERS: PCP Internal Medicine; Visit Provider Obstetrics & Gynecology
DX: Z12.31 Encounter for screening mammogram for malignant neoplasm of breast (principal)
CPT/HCPCS: 77063; 77067

== ENCOUNTER 2025-05-27 17:30 | Observation (INO) | payer MEDICARE, SELFPAY ==
[2025-05-27] VITALS (11 sets, daily range): BP systolic 138–152; BP diastolic 64–81; PULSE 78–89; RESP 16–76; TEMP 36.3–36.7; O2SAT 95–99; BMI 22.4
--- NOTE | ~2025-05-27 | CT_ITS ---
CLINICAL INDICATION: Right lower quadrant abdominal pain COMPARISON: 09/25/2021. TECHNIQUE: Multiple contiguous axial images of the abdomen and pelvis were performed following the ad ministration of with 100 mL Omnipaque-350 intravenous contrast The dose-length product (DLP) was 207.99 mGy-cm. Automated exposure control and iterative reconstruction technique were employed. FINDINGS/OBSERVATIONS: Visualized lower thorax: The bilateral lung bases are clear. The heart is of normal size, without pericardial effusion. Small hiatal hernia is present. Liver: The liver demonstrates homogeneous enhancement and is not enlarged. Gallbladder and biliary system: The gallbladder is only minimally distended, and otherwise unremarkable. Pancreas: The pancreas enhances homogeneously without ductal dilatation. Spleen: The spleen enhances homogeneously and is not enlarged. Kidneys: The bilateral kidneys enhance symmetrically without hydronephrosis or renal calculi. Adrenal glands: Unremarkable. Gastrointestinal tract: Fecal stasis within the colon. Appendix: The anderson of the appendix are hyperemic. The appendix is fluid-filled and distended measuring 10.3 mm in caliber (axial series, images 114 thr ough 125) within surrounding inflammatory change. No discrete fluid collection is identified. No sign of perforation is present. Vasculature: Unremarkable. Lymph nodes: No pathologically enlarged or morphologically suspicious lymph nodes within the retroperitoneum or at the root of the mesentery. Pelvic structures: The bladder is decompressed, and otherwise unremarkable. The uterus is surgically absent. Body wall and musculoskeletal: Small fat-containing umbilical hernia. Age-appropriate degenerative disease within the lower thoracic and lumbosacral spines. IMPRESSION: Findings in the appropriate clinical scenario suggesting acute nonruptured appendicitis, as detailed above. Reviewed, dictated and finalized at location A. IMPRESSION: Findings in the appropriate clinical scenario suggesting acute nonruptured appe ndicitis, as detailed above.
--- OUTSIDE RECORDS SUMMARY | 2025-05-27 17:32 | XMS_ITS | Encounter Summary ---
Author Organization [facility] Address [address] [place] [address] Care Team Providers Care Chemical Lab Technician Name Role Phone Drarel Castelan DO Primary Care Provider Charles Gordon Calos DO Primary Care Provider [phone] Encounter Details Date Type Department Care Team (Late Contact Info) Description 04/09/2023 Lab Requisition [facility] - DermPath Lab [address] 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 Gender Identity Not on file Sexual Orientation Not on file documented as of this encounter Plan of Treatment Upcoming Encounters Date Type Department Care Team (Late Contact Info) Description 07/20/2025 2:20 PM CDT Office Visit [facility] - ANIMAL GROOMER [address] [facility] [address] [place] [address] Karla Strong MD [address] [facility] [address] [place] [address] documented as of this encounter Procedures Procedure Name Priority Date/Time Associated Diagnosis Comments DERMATOPATHOLOGY Routine 04/09/2023 10:5 4 AM CDT documented in this encounter Results * DERMATOPATHOLOGY (04/09/2023 10:54 AM CDT) Case Report Dermatopathology Report Case: [id number] Authorizing Provider: Dina Melendez DO Collected: 04/09/2023 10:54 AM Ordering Location: [facility] DermPath Lab Received: 04/10/2023 03:21 PM Pathologist: [...] characteristic determined by the Dermatopathology Laboratory at [facility], directed by Dr. Harlan Peralta. These tests need not be, and therefore are not, approved by the [place] Food and Drug Administration. The tests are used for clinical purposes. Billing Codes Specimen Charges Stain Charges 67169 1 3 3:59 PM CDT DERMATOPATHOLOGY LABORATORY Embedded Images 3 3:59 PM CDT DERMATOPATHOLOGY LABORATORY Pathology/Cytolo gy TISSUE SPECIMEN FROM SKIN / Unknown 04/09/2023 10:54 AM CDT 04/10/2023 3:21 PM CDT us Dina Melendez DO LAB - PATHOLOGY/CYTOLOGY ORDERABLES Final Result DERMATOPATHOLOGY LABORATORY [facility] - Department of Dermatology [facility] Medicine [address] [place] [address], [address] [phone] documented in this encounter Visit Diagnoses Not on filedocumented in this encounter Care Teams Chemical Lab Technician Relationship Specialty Start Date End Date Darrel Castelan DO [address] [place] [address] PCP - General 07/06/15 04/20/25 Charles Gordon DO [address] [place] [address] PCP - General Internal Medicine 04/21/25 documented as of this encounter
--- OUTSIDE RECORDS SUMMARY | 2025-05-27 17:32 | XMS_ITS | Clinical Summary ---
Author Organization [facility] [employer] Address [address] [facility] [place] [address] Care Team Providers Care Ict Security Specialist Name Role Phone Charles Gordon Primary Care Provider [phone] Source Comments [facility],non-owned Affiliates and Associated Physician Practices is amultiple site organization consisting of ambulatory clinics and hospital sitesin [place], [place], [place] and [place]. This disclosure is being madepursuant to the Care Everywhere program and may not contain all information available regarding this patient. 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
--- OUTSIDE RECORDS SUMMARY | 2025-05-27 17:32 | XMS_ITS | Clinical Summary ---
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 Gender Identity Not on file Sexual Orientation Not on file Obstetrics History Last Filed Vital Signs Vital Sign Reading Time Taken Comments Blood Pressure 131/77 10/30/2023 12:55 PM SMOKE ROOM OPERATOR Pulse 65 10/30/2023 12:55 PM SMOKE ROOM OPERATOR Temperature 35.8 C (96.5 F) 10/30/2023 12:55 PM SMOKE ROOM OPERATOR Respiratory Rate 16 09/28/2023 8:26 AM SMOKE ROOM OPERATOR Oxygen Saturation 98% 09/28/2023 11:55 AM SMOKE ROOM OPERATOR Inhaled Oxygen Concentration - - Weight 60.6 kg (133 lb 9.6 oz) 09/13/2023 12:35 PM SMOKE ROOM OPERATOR Height 162.6 cm (5' 4) 09/13/2023 12:35 PM SMOKE ROOM OPERATOR Body Mass Index 22.93 09/13/2023 12:35 PM SMOKE ROOM OPERATOR Plan of Treatment Health Maintenance Due Date [...] 07/16, 12/06/2012 Medical Devices Implanted Type Area President/G[employer]iences Device Identifier Shelf Expiration Date Model / Serial / Lot [employer] Ar-2324 Bcm Swivelock 4.75mm 24.5mm Self Punch Vent Shoulder [place] Suture - Sn/A - [id number] Implanted:Qty: 1 on 02/27/2019 by Lonnie Bettencourt MD at [facility] Right: Shoulder [employer] 11/14/2020 AR-[id number] / N/A / Insurance AETNA MEDICARE AETNA MEDICARE AETNA MEDICARE Advance Directives For more information, please contact: [phone] * Full Code (Latest Code Status on File) Date Activated Date Inactivated Comments 09/25/2023 12:50 PM 09/28/2023 8:01 PM Care Teams Parts Picker Relationship Specialty Start Date End Date Darrel Castelan MD [address] [place] [address] PCP - General 01/12/17 Felix Hill MD [phone] [place] [address] Surgeon Colon and Rectal Surgery 07/25/23 Vijay Velázquez MD [address] [phone] [place] [address] Consulting Physician Urology 08/19/23 Daniel Dyer MD [address] [facility] [address] [place] [address] Gastroenterology 09/25/23
--- NOTE | 2025-05-27 17:45 | ED_ITS ---
HPI - Abdominal Pain General Chief Complaint: Abdominal Pain <Zamzam LiveJuan Chacko DIRECTOR BEHAVIORAL HEALTH - Last Filed: 05/27/25 17:56> Stated Complaint: abd pain <Zamzam Wesley Ricco DIRECTOR BEHAVIORAL HEALTH - Last Filed: 05/27/25 17:56> Time Seen by Provider: 05/27/25 17:45 <Zamzam CalosJuan Chacko DIRECTOR BEHAVIORAL HEALTH - Last Filed: 05/27/25 17:56> Focused HPI: Patient is a 74-year-old female presents to the ER with right lower quadrant abdominal pain. She reports being started yesterday as gas. Patient reports that his now radiated to her right lower quadrant. She endorses 1 episode of emesis last night. Patient also endorses a ?low-grade fever at home. She endorses a history of diverticulitis and a hysterectomy. Patient reports she had part of her sigmoid colon removed due to her diverticulitis. Her last bowel movement was approximately 2 days ago, but she had a ?small one this morning. She denies any chest pain, shortness of breath, back pain, or urinary symptoms. GENERAL: Well-appearing, well-nourished, and in no acute distress. HEAD: Normocephalic, atraumatic. CHEST: Clear to auscultation. ?No respiratory distress. HEART: Regular rate and rhythm.? NEURO: ?Alert and oriented x3. ABD: + BS, + Greenberg's sign Patient screened in triage and initial orders placed.? ?Additional care and disposition to be based upon?diagnostic testing and treatment. <Zamzam CalosJuan Chacko, DIRECTOR BEHAVIORAL HEALTH - Last Filed: 05/27/25 17:56> Focused HPI: Patient is a 74-year-old female presents to the ER with right lower quadrant abdominal pain. She reports being started yesterday as gas. Patient reports that his now radiated to her right lower quadrant. She endorses 1 episode of emesis last night. Patient also endorses a ?low-grade fever at home. She endorses a history of diverticulitis and a hysterectomy. Patient reports she had part of her sigmoid colon removed due to her diverticulitis. Her last bowel movement was approximately 2 days ago, but she had a ?small one this morning. She denies any chest pain, shortness of breath, back pain, or urinary symptoms. GENERAL: Well-appearing, well-nourished, and in no acute distress. HEAD: Normocephalic, atraumatic. CHEST: Clear to auscultation. ?No respiratory distress. HEART: Regular rate and rhythm.? NEURO: ?Alert and oriented x3. ABD: + BS, + McBurney's sign Patient screened in triage and initial orders placed.? ?Additional care and disposition to be based upon?diagnostic testing and treatment. <Shay Mitchell MD - Last Filed: 05/27/25 19:57> History of Present Illness HPI narrative: agree with the above HPI <Shay Mitchell MD - Last Filed: 05/27/25 19:57> Related Data Home Medications: Home Medications ?Medication ?Instructions ?Recorded ?Confirmed ?Last Taken ?Type aspirin 81 mg tablet,delayed 81 mg PO DAILY 11/05/19 05/12/25 Unknown History release calcium carbonate 260 mg PO DAILY 05/11/20 05/12/25 Unknown History cholecalciferol (vitamin D3) 125 125 mcg PO DAILY 01/11/22 05/12/25 Unknown History mcg (5,000 unit) capsule Collagen Peptides PO 05/12/25 05/12/25 Unknown History <Zamzam Chacko APRN - Last Filed: 05/27/25 17:56> Allergies/Adverse Reactions: Allergies Allergy/AdvReac Type Severity Reaction Status Date / Time Penicillins Allergy Mild Rash Verified 05/12/25 08:19 silicone tape Allergy Intermediate large Uncoded 05/12/25 08:19 water blisters <Zamzam Chacko APRN - Last Filed: 05/27/25 17:56> Review of Systems 2 Review of Systems: as reviewed above in HPI <Shay Mitchell MD - Last Filed: 05/27/25 19:57> PMFSH Past Medical History Medical History: Medical History Hypertension Thyroid goiter IBS (irritable bowel syndrome) <Zamzam Chacko APRN - Last Filed: 05/27/25 17:56> Surgical History Surgical History: Surgical History Hx of repair of right rotator cuff Hx of bilateral cataract extraction Hx of blepharoplasty bilateral History of trigger finger left hand 3rd and 4th finger Hx of abdominoplasty Hx of vaginal hysterectomy Hx of right breast biopsy Right excisional breast in 1992 <Zamzam Chacko APRN - Last Filed: 05/27/25 17:56> Family History Family History: Family History Father Family history of alcoholism, Onset Age: 84 Mother CHF (congestive heart failure) Failure to thrive Sibling Hypertension Heart disease Family history of alcoholism CAD (coronary artery disease) PAD (peripheral artery disease) PVD (peripheral vascular disease) Arthritis Heart valve replaced AAA (abdominal aortic aneurysm) Other Breast cancer <Zamzam Chacko, DIRECTOR BEHAVIORAL HEALTH - Last Filed: 05/27/25 17:56> Social History Social History: Social History Smoking packs per day: 1 Smoking cigarettes per day: 20.0 Years smoked: 20 Smoking pack-years: 20.00 Smoking status: Former smoker Tobacco type: cigarettes Second hand tobacco smoke exposure: No Smoking end date: 10/15/90 Alcohol intake: current Drinks per week: 14 Alcohol use details: Cocktails and wine daily Substance use: never Substance use type: does not use Do You Feel Safe in your Home?: Yes Lack of Transportation: No Lack of Food: Never True Current Housing: I Have Housing Concerned About Future Housing: No Difficulty Paying Gas/Electric Bills: No Difficulty Paying for Meds: No Currently Unemployed: No Education: Trade/Vocational Certificate Difficulty w/ Childcare or Family Care: No Living arrangements: with family Occupation/Education: retired Spiritual care concerns: No <Zamzam Chacko, DIRECTOR BEHAVIORAL HEALTH - Last Filed: 05/27/25 17:56> Exam 2 Narrative: GENERAL: [Well-appearing, well-nourished, and in no acute distress.] HEAD: [Normocephalic, atraumatic.] EYES: [PERRLA and EOMI.] ENT: Nares clear, no rhinorrhea or epistaxis. Mucous membranes moist. NECK: Supple. CHEST: [Clear to auscultation. No respiratory distress.] HEART: [Regular rate and rhythm]. No murmur heard. [Normal peripheral pulses.] ABDOMEN: [Soft, nondistended], mild tenderness to palpation in the periumbilical and right lower quadrant region without any rigidity, guarding. Positive McBurney's sign, [No rigidity or guarding] EXTREMITIES: Normal range of motion. [No edema.] SKIN: Warm, dry, no rash. NEURO: [No focal deficits]. Alert and oriented [x3.] PSYCH: [Normal mood and affect.] <Shay Mitchell MD - Last Filed: 05/27/25 19:57> Course Vital Signs Vital signs: Vital Signs Temperature 36.7 C 05/27/25 17:37 Pulse Rate 79 05/27/25 17:37 Respiratory Rate 16 05/27/25 17:37 Blood Pressure 138/64 05/27/25 17:37 Pulse Oximetry 98 05/27/25 17:37 Temperature 36.7 C 05/27/25 17:37 Pulse Rate 79 05/27/25 17:37 Respiratory Rate 16 05/27/25 17:37 Blood Pressure 138/64 05/27/25 17:37 Pulse Oximetry 98 05/27/25 17:37 <Zamzam Chacko APRN - Last Filed: 05/27/25 17:56> Vital Signs Temperature 36.7 C 05/27/25 17:37 Pulse Rate 79 05/27/25 17:37 Respiratory Rate 16 05/27/25 17:37 Blood Pressure 138/64 05/27/25 17:37 Pulse Oximetry 98 05/27/25 17:37 Temperature 36.7 C 05/27/25 17:37 Pulse Rate 79 05/27/25 17:37 Respiratory Rate 16 05/27/25 17:37 Blood Pressure 138/64 05/27/25 17:37 Pulse Oximetry 98 05/27/25 17:37 <Shay Mitchell MD - Last Filed: 05/27/25 19:57> MDM - Abdominal Pain MDM Narrative Medical decision making narrative: 74-year-old female presents to the ER with right lower quadrant abdominal pain. She reports being started yesterday as gas. Patient reports that his now radiated to her right lower quadrant. She endorses 1 episode of emesis last night. Patient also endorses a ?low-grade fever at home. She endorses a history of diverticulitis and a hysterectomy. Patient reports she had part of her sigmoid colon removed due to her diverticulitis. Her last bowel movement was approximately 2 days ago, but she had a ?small one this morning. She denies any chest pain, shortness of breath, back pain, or urinary symptoms. Patient does have right lower quadrant abdominal tenderness with positive McBurneys sign. Hemodynamically stable. Laboratory studies obtained to rule out appendicitis, diverticulitis, intra-abdominal abscess formation, UTI. CT scan with contrast obtained. She was given low-dose morphine and fluids. CT scan confirms acute uncomplicated appendicitis with a white count of 15.5 and laboratory assessment. Otherwise hemodynamically stable, lactic acid is negative, no kidney for liver dysfunction. Spoke to general surgeon Dr. Lal who recommended admission to the hospitalist service for surgery consult. Patient started on antibiotics including Rocephin and Flagyl for her allergies to penicillins. Patient comfortable with the plan admitted to [facility]. I discussed the case with the hospitalist who accepted the patient to the medicine service at this time. <Shay Mitchell MD - Last Filed: 05/27/25 19:57> Medical Records Attestation: I reviewed the patient's medical records. <Shay Mitchell MD - Last Filed: 05/27/25 19:57> Lab Data Attestation: I reviewed the patient's lab results. <Shay Mitchell MD - Last Filed: 05/27/25 19:57> Result diagrams: 05/27/25 17:46 05/27/25 17:46 <Zamzam Chacko APRN - Last Filed: 05/27/25 17:56> Labs: Lab Results 05/27/25 05/27/25 Range/Units 17:46 19:19 WBC 15.5 H (4.5-10.0) K/mm3 RBC 3.94 L (4.2-5.4) M/mm3 Hgb 12.0 (12.0-15.0) g/dL Hct 35.9 L (37.0-47.0) % MCV 91.1 (80-100) fl MCH 30.5 (26-34) pg MCHC 33.4 (32-36) g/dl RDW 12.7 (11.5-14.5) % Plt Count 257 (150-375) k/mm3 MPV 9.6 (7.4-10.4) fl Immature Gran % (Auto) 0.3 (0-0.5) % Neut % (Auto) 71.7 (45.5-73.1) % Lymph % (Auto) 14.9 L (18.3-44.2) % Chilton % (Auto) 12.0 H (2.6-8.5) % Eos % (Auto) 0.8 (0-4.4) % Baso % (Auto) 0.3 (0.2-1.2) % Lymph # (Auto) 2.31 (0.9-3.2) K/mm3 Chilton # (Auto) 1.9 H (0.1-0.6) K/mm3 Eos # (Auto) 0.1 (0-0.3) K/mm3 Baso # (Auto) 0.0 (0.0-0.1) K/mm3 Abs Immat Gran (auto) 0.05 H (0.00-0.031) K/mm3 Absolute Neuts (auto) 11.1 H (1.3-6.7) K/mm3 Absolute Nucleated RBC 0.000 (0.0-0.012) K/mm3 Nucleated RBC % 0.0 (0.0-0.2) % PT 13.5 (11.1-14.7) Seconds INR 1.0 APTT 31.3 (22.3-36.8) Seconds Sodium 132 L (137-145) mmol/L Potassium 4.1 (3.4-5.0) mmol/L Chloride 97 L (98-107) mmol/L Carbon Dioxide 29 (22-30) mmol/L Anion Gap 6 (4-12) mmol/L BUN 14 (7-17) mg/dL Creatinine 0.74 (0.7-1.0) mg/dL Estim Creat Clear Calc 52 ml/min Estimated GFR > 60 (59 - ) Glucose 109 (65-110) mg/dL Lactic Acid 0.8 (0.7-2.0) mmol/L Calcium 10.1 (8.4-10.2) mg/dL Total Bilirubin 0.5 (0.2-1.3) mg/dL AST 32 (14-36) U/L ALT 31 (6-35) U/L Alkaline Phosphatase 81 (38-126) U/L Total Protein 6.8 (6.3-8.2) g/dL Albumin 4.1 (3.5-5.1) g/dL Lipase 102 (23-300) U/L Urine Color Yellow (Yellow) Urine Appearance Clear (Clear) Urine pH 8.5 (5.0-9.0) Ur Specific Radnor 1.010 (1.001-1.035) Urine Protein Negative (Negative) mg/dL Urine Glucose (UA) Negative (Negative) mg/dL Urine Ketones Negative (Negative) mg/dL Ur Blood (Man) Negative (Negative) Urine Nitrate Negative (Negative) Urine Bilirubin Negative (Negative) Urine Urobilinogen 0.2 (<2.0) mg/dL Leukocyte Esterase Rfl Trace H (Negative) LUIS CARLOS/UL Urine RBC 0-2 (0-2) /hpf Urine WBC 0-5 (0-3) /hpf Ur Squamous Epith Cells None seen (Few) /hpf Urine Bacteria None seen /hpf Urine Casts 0-2 <Zamzam Chacko, DIRECTOR BEHAVIORAL HEALTH - Last Filed: 05/27/25 17:56> Lab Results 05/27/25 05/27/25 Range/Units 17:46 19:19 WBC 15.5 H (4.5-10.0) K/mm3 RBC 3.94 L (4.2-5.4) M/mm3 Hgb 12.0 (12.0-15.0) g/dL Hct 35.9 L (37.0-47.0) % MCV 91.1 (80-100) fl MCH 30.5 (26-34) pg MCHC 33.4 (32-36) g/dl RDW 12.7 (11.5-14.5) % Plt Count 257 (150-375) k/mm3 MPV 9.6 (7.4-10.4) fl Immature Gran % (Auto) 0.3 (0-0.5) % Neut % (Auto) 71.7 (45.5-73.1) % Lymph % (Auto) 14.9 L (18.3-44.2) % Chilton % (Auto) 12.0 H (2.6-8.5) % Eos % (Auto) 0.8 (0-4.4) % Baso % (Auto) 0.3 (0.2-1.2) % Lymph # (Auto) 2.31 (0.9-3.2) K/mm3 Chilton # (Auto) 1.9 H (0.1-0.6) K/mm3 Eos # (Auto) 0.1 (0-0.3) K/mm3 Baso # (Auto) 0.0 (0.0-0.1) K/mm3 Abs Immat Gran (auto) 0.05 H (0.00-0.031) K/mm3 Absolute Neuts (auto) 11.1 H (1.3-6.7) K/mm3 Absolute Nucleated RBC 0.000 (0.0-0.012) K/mm3 Nucleated RBC % 0.0 (0.0-0.2) % PT 13.5 (11.1-14.7) Seconds INR 1.0 APTT 31.3 (22.3-36.8) Seconds Sodium 132 L (137-145) mmol/L Potassium 4.1 (3.4-5.0) mmol/L Chloride 97 L (98-107) mmol/L Carbon Dioxide 29 (22-30) mmol/L Anion Gap 6 (4-12) mmol/L BUN 14 (7-17) mg/dL Creatinine 0.74 (0.7-1.0) mg/dL Estim Creat Clear Calc 52 ml/min Estimated GFR > 60 (59 - ) Glucose 109 (65-110) mg/dL Lactic Acid 0.8 (0.7-2.0) mmol/L Calcium 10.1 (8.4-10.2) mg/dL Total Bilirubin 0.5 (0.2-1.3) mg/dL AST 32 (14-36) U/L ALT 31 (6-35) U/L Alkaline Phosphatase 81 (38-126) U/L Total Protein 6.8 (6.3-8.2) g/dL Albumin 4.1 (3.5-5.1) g/dL Lipase 102 (23-300) U/L Urine Color Yellow (Yellow) Urine Appearance Clear (Clear) Urine pH 8.5 (5.0-9.0) Ur Specific Radnor 1.010 (1.001-1.035) Urine Protein Negative (Negative) mg/dL Urine Glucose (UA) Negative (Negative) mg/dL Urine Ketones Negative (Negative) mg/dL Ur Blood (Man) Negative (Negative) Urine Nitrate Negative (Negative) Urine Bilirubin Negative (Negative) Urine Urobilinogen 0.2 (<2.0) mg/dL Leukocyte Esterase Rfl Trace H (Negative) LUIS CARLOS/UL Urine RBC 0-2 (0-2) /hpf Urine WBC 0-5 (0-3) /hpf Ur Squamous Epith Cells None seen (Few) /hpf Urine Bacteria None seen /hpf Urine Casts 0-2 <Shay Mitchell MD - Last Filed: 05/27/25 19:57> Imaging Data Attestation: I personally reviewed and interpreted this imaging study as follows: < Shay Mitchell MD - Last Filed: 05/27/25 19:57> My impression: Impressions Abdomen/Pelvis CT 05/27/25 18:25 IMPRESSION: Findings in the appropriate clinical scenario suggesting acute nonruptured appendicitis, as detailed above. <Shay Mitchell MD - Last Filed: 05/27/25 19:57> Radiologist's impression: ITS Impressions Abdomen/Pelvis CT 05/27/25 18:25 IMPRESSION: Findings in the appropriate clinical scenario suggesting acute nonruptured appendicitis, as detailed above. <Zamzam Chacko APRN - Last Filed: 05/27/25 17:56> ITS Impressions Abdomen/Pelvis CT 05/27/25 18:25 IMPRESSION: Findings in the appropriate clinical scenario suggesting acute nonruptured appendicitis, as detailed above. <Shay Mitchell MD - Last Filed: 05/27/25 19:57> Critical Care Time Critical Care Time Critical Care Time: Yes <Shay Mitchell MD - Last Filed: 05/27/25 19:57> Total Critical Care Time: 35 <Shay Mitchell MD - Last Filed: 05/27/25 19:57> Discharge Plan Discharge Clinical Impression: Acute appendicitis <Zamzam Chacko APRN - Last Filed: 05/27/25 17:56> Patient Disposition: Still a Patient <Zamzam Chacko APRN - Last Filed: 05/27/25 17:56> Condition: Stable <Zamzam Chacko APRN - Last Filed: 05/27/25 17:56> Instructions: Antibiotic Form <Zamzam Chacko APRN - Last Filed: 05/27/25 17:56> Patient Language: Serbian <Zamzam Chacko APRN - Last Filed: 05/27/25 17:56> Prescriptions: No Action aspirin 81 mg tablet,delayed release (DR/EC) 81 mg PO DAILY calcium carbonate 260 mg calcium (648 mg) tablet 260 mg PO DAILY cholecalciferol (vitamin D3) 125 mcg (5,000 unit) capsule 125 mcg PO DAILY Collagen Peptides PO dicyclomine 10 mg capsule 10 mg PO BID PRN (Reason: Abdominal Discomfort) Qty: 60 2RF carvedilol [Coreg] 6.25 mg tablet 6.25 mg PO Q12H Qty: 180 3RF Rx Instructions: must administer with a meal/food fosinopril 10 mg tablet 10 mg PO BID Qty: 180 3RF <Zamzam Chacko APRN - Last Filed: 05/27/25 17:56> Follow-up/Referrals: Charles Gordon DO [Primary Care Provider] - <Zamzam Chacko APRN - Last Filed: 05/27/25 17:56> Time of Disposition: 19:57 <Zamzam Chacko APRN - Last Filed: 05/27/25 17:56> 19:57 <Shay Mitchell MD - Last Filed: 05/27/25 19:57>
[2025-05-27 17:53] LABS: Hematocrit 35.9 % (37.0-47.0); Hemoglobin 12.0 g/dL (12.0-15.0); Immature Granulocyte Percent A 0.3 % (0-0.5); Lymphocytes Absolute Auto 2.31 K/mm3 (0.9-3.2); Mean Corpuscular HGB Conc 33.4 g/dl (32-36); Mean Corpuscular Hemoglobin 30.5 pg (26-34); Mean Corpuscular Volume 91.1 fl (80-100); Nucleated Red Blood Cells Absolute Auto 0.000 K/mm3 (0.0-0.012); Nucleated Red Blood Cells Perc 0.0 % (0.0-0.2); Platelet Count Result 257 k/mm3 (150-375); Red Blood Count 3.94 M/mm3 (4.2-5.4); White Blood Count 15.5 K/mm3 (4.5-10.0)
[2025-05-27 18:00] LABS: Add Urine Microscopic? YES; Appearance Urine Clear (Clear); Glucose Urine UA Negative (Negative); Leukocyte Esterase Ur Trace LEU/UL (Negative); Nitrate Urine Negative (Negative); Non Pathogenic Casts 0-2; Specific Grav Ur 1.010 (1.001-1.035)
[2025-05-27 18:03] LABS: Alanine Aminotransferase 31 U/L (6-35); Albumin Level 4.1 g/dL (3.5-5.1); Alkaline Phosphatase 81 U/L (38-126); Anion Gap 6 mmol/L (4-12); Aspartate Amino Transferase 32 U/L (14-36); Bilirubin,Total 0.5 mg/dL (0.2-1.3); Blood Urea Nitrogen 14 mg/dL (7-17); Calcium 10.1 mg/dL (8.4-10.2); Carbon Dioxide 29 mmol/L (22-30); Chloride 97 mmol/L (98-107); Estimated CRCL calculation 52 ml/min; Estimated Glomerular Filt Rate > 60; Glucose 109 mg/dL (65-110); Lipase 102 U/L (23-300); Potassium 4.1 mmol/L (3.4-5.0); Sodium 132 mmol/L (137-145); Total Protein 6.8 g/dL (6.3-8.2)
[2025-05-27 18:08] LABS: INR 1.0; Prothrombin Time 13.5 Seconds (11.1-14.7)
[2025-05-27 18:09] LABS: Partial Thromboplastin Time 31.3 Seconds (22.3-36.8)
--- OUTSIDE RECORDS SUMMARY | 2025-05-27 19:33 | XMS_ITS | Clinical Summary ---
Author Organization [facility] Address [address] [place] [address] Care Team Providers Care Hosiery Pairer Name Role Phone Charles Gordon Primary Care Provider [phone] Source Comments [facility],non-owned Affiliates and Associated Physician Practices is amultiple site organization consisting of ambulatory clinics and hospital sitesin [place], [place], [place] and [place]. This disclosure is being madepursuant to the Care Everywhere program and may not contain all information available regarding this patient. Last updated 18.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
--- OUTSIDE RECORDS SUMMARY | 2025-05-27 19:33 | XMS_ITS | Clinical Summary ---
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6 oz) 09/13/2023 12:35 PM LAUNDRY OPERATOR FINISHING Height 162.6 cm (5' 4) 09/13/2023 12:35 PM LAUNDRY OPERATOR FINISHING Body Mass Index 22.93 09/13/2023 12:35 PM LAUNDRY OPERATOR FINISHING Plan of Treatment Health Maintenance Due Date [...] 07/16, 12/06/2012 Medical Devices Implanted Type Area Occupational Health Rn Device Identifier Shelf Expiration Date Model / Serial / Lot [employer] [id number] Bcm Swivelock 4.75mm 24.5mm Self Punch Vent Shoulder [place] Suture - Sn/A - [id number] Implanted:Qty: 1 on 02/27/2019 by Lonnie Bettencourt MD at [facility] Right: Shoulder [employer] 11/14/2020 [id number] / N/A / Insurance AETNA MEDICARE AETNA MEDICARE AETNA MEDICARE Advance Directives For more information, please contact: [phone] * Full Code (Latest Code Status on File) Date Activated Date Inactivated Comments 09/25/2023 12:50 PM 09/28/2023 8:01 PM Care Teams Generation Technician Relationship Specialty Start Date End Date Darrel Castelan MD [address] [place] [address] PCP - General 01/12/17 Felix Hill MD [phone] [place] [address] Surgeon Colon and Rectal Surgery 07/25/23 Vijay Velázquez MD [phone] [place] [address] Consulting Physician Urology 08/19/23 Daniel Dyer MD [address] [facility] [address] [place] [address] Gastroenterology 09/25/23
--- OUTSIDE RECORDS SUMMARY | 2025-05-27 19:33 | XMS_ITS | Encounter Summary ---
Author Organization [facility] Address [address] [place] [address] Care Team Providers Care Fiberline Supervisor Name Role Phone Darrel Castelan DO Primary Care Provider [phone] Charles Gordon Calos DO Primary Care Provider [phone] Encounter Details Date Type Department Care Team (Late Contact Info) Description 04/09/2023 Lab Requisition [facility] - DermPath Lab [address] [facility] [place] [id number] Dina Melendez DO [address] [facility] [address] [place] [address] Social History Tobacco Use Types Packs/Day Years Used Date Smoking Tobacco: Former Smokeless Tobacco: Former Alcohol Use Standard Drinks/Week Comments Yes 0 (1 standard drink = 0.6 oz pur e alcohol) Comments No Sex and Gender Information Value Date Recorded Sex Assigned at Not on file 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 Gender Identity Not on file Sexual Orientation Not on file documented as of this encounter Plan of Treatment Upcoming Encounters Date Type Department Care Team (Late Contact Info) Description 07/20/2025 2:20 PM CDT Office Visit [facility] - MANAGER COMBINATION [address] [place] [id number] Karla Strong MD [address] [facility] [address] [place] [address] documented as of this encounter Procedures Procedure Name Priority Date/Time Associated Diagnosis Comments DERMATOPATHOLOGY Routine 04/09/2023 10:5 4 AM CDT documented in this encounter Results * DERMATOPATHOLOGY (04/09/2023 10:54 AM CDT) Case Report Dermatopathology Report Case: [id number] Authorizing Provider: Dina Melendez DO Collected: 04/09/2023 [...] characteristic determined by the Dermatopathology Laboratory at [facility], directed by Dr. Harlan Peralta. These tests need not be, and therefore are not, approved by the [place] Food and Drug Administration. The tests are used for clinical purposes. Billing Codes Specimen Charges Stain Charges 97487 1 3 3:59 PM CDT DERMATOPATHOLOGY LABORATORY Embedded Images 3 3:59 PM CDT DERMATOPATHOLOGY LABORATORY Pathology/Cytolo gy TISSUE SPECIMEN FROM SKIN / Unknown 04/09/2023 10:54 AM CDT 04/10/2023 3:21 PM CDT us Dina Melendez DO LAB - PATHOLOGY/CYTOLOGY ORDERABLES Final Result DERMATOPATHOLOGY LABORATORY [facility] - Department of Dermatology [facility] [address] [place] [address], [address] [phone] documented in this encounter Visit Diagnoses Not on filedocumented in this encounter Care Teams Fiberline Supervisor Relationship Specialty Start Date End Date Darrel Castelan DO [address] [place] [address] PCP - General 07/06/15 04/20/25 Charles Gordon DO [address] [place] [address] PCP - General Internal Medicine 04/21/25 documented as of this encounter
[2025-05-27] MEDS: SODIUM CHLORIDE 0.9% IV 1,000 ML 999 ML IV CONT (19:39)
[2025-05-27] MEDS: cefTRIAXone 1 GM in SODIUM CHLORIDE 0.9% IV 50 ML 100 ML IVPB (19:40)
[2025-05-27] MEDS: MORPHINE SULFATE (*CRX) 2 MG/ML INJ IV PUSH (19:40)
[2025-05-27] MEDS: metroNIDAZOLE 500 MG/ISO 100ML 500 MG/100 ML BAG 100 MG IVPB (20:09)
--- NOTE | 2025-05-27 20:22 | PM.IMHP ---
H&P: HPI History of Present Illness Date/Time: 05/27/25 20:22 Chief Complaint: abdominal pain, acute appendicitis Narrative: 74-year-old patient is admitted to the hospital on IV antibiotics after ER diagnosis of acute appendicitis. Patient came to the emergency department with worsening abdominal pain, nausea, low-grade fever, episode of vomiting. She received pain medication in the emergency department. Labs showed elevated white blood cell count at 15.5 with normal hemoglobin 12 hematocrit 35.9. On chemistry panel patient noted to have mild hyponatremia with a sodium level of 132. Urinalysis with trace leukocyte esterase 0 2 RBC 0-5 wbc's no bacteria or nitrates. CT scan of the abdomen and pelvis showed hyperemia of the anderson of the appendix fluid-filled and distended 10.3 mm in caliber with surrounding inflammatory change no abscess or perforation. She received IV Rocephin and Flagyl. General surgery was consulted will see patient in the morning. Admission to the hospitalist service. Pain improved with treatment and she was doing better by the time she arrived to the floor. Review of Systems Review of Systems: All systems reviewed & are unremarkable except as noted in HPI and below PMFSH Past Medical History Medical History Hypertension Thyroid goiter IBS (irritable bowel syndrome) Surgical History Surgical History Hx of repair of right rotator cuff Hx of bilateral cataract extraction Hx of blepharoplasty bilateral History of trigger finger left hand 3rd and 4th finger Hx of abdominoplasty Hx of vaginal hysterectomy Hx of right breast biopsy Right excisional breast in 1992 Family History Family History Father Family history of alcoholism, Onset Age: 84 Mother CHF (congestive heart failure) Failure to thrive Sibling Hypertension Heart disease Family history of alcoholism CAD (coronary artery disease) PAD (peripheral artery disease) PVD (peripheral vascular disease) Arthritis Heart valve replaced AAA (abdominal aortic aneurysm) Other Breast cancer Social History Social History Smoking packs per day: 1 Smoking cigarettes per day: 20.0 Years smoked: 20 Smoking pack-years: 20.00 Smoking status: Former smoker Second hand tobacco smoke exposure: No Alcohol intake: current Drinks per week: 7 Alcohol use details: Cocktails and wine daily Substance use: never Substance use type: does not use Do You Feel Safe in your Home?: Yes Lack of Transportation: No Lack of Food: Never True Current Housing: I Have Housing Concerned About Future Housing: No Difficulty Paying Gas/Electric Bills: No Difficulty Paying for Meds: No Currently Unemployed: No Education: Trade/Vocational Certificate Difficulty w/ Childcare or Family Care: No Living arrangements: with family Occupation/Education: retired Spiritual care concerns: No Meds Home Medications and Allergies Home Medications ?Medication ?Instructions ?Recorded ?Confirmed ?Type aspirin 81 mg tablet,delayed 81 mg PO HS 11/05/19 05/27/25 History release calcium carbonate 260 mg PO BID 05/11/20 05/27/25 History dicyclomine 10 mg capsule 10 mg PO BID PRN Abdominal 12/06/23 05/27/25 Rx Discomfort #60 caps carvedilol 6.25 mg tablet (Coreg) 6.25 mg PO Q12H #180 tabs 10/28/24 05/27/25 Rx fosinopril 10 mg tablet 10 mg PO BID #180 tabs 10/28/24 05/27/25 Rx Collagen Peptides See Rx Instructions .Route DAILY 05/12/25 05/27/25 History acyclovir 5 % topical ointment 1 applic topical BID PRN cold sores 05/27/25 05/27/25 History Allergies Allergy/AdvReac Type Severity Reaction Status Date / Time Penicillins Allergy Mild Rash Verified 05/12/25 08:19 silicone tape Allergy Intermediate large Uncoded 05/12/25 08:19 water blisters Vital Signs Vital Signs - 24 hr 05/27/25 17:37 Temperature 36.7 C Pulse Rate 79 Respiratory Rate 16 Blood Pressure 138/64 Pulse Oximetry 98 Exam Narrative: GENERAL: Well-appearing, well-nourished, and in no acute distress. HEAD: Normocephalic, atraumatic. ENT:? Mucous membranes moist. CHEST: Clear to auscultation.? No respiratory distress. HEART: Regular rate and rhythm. ? Normal peripheral pulses. ABDOMEN: Soft, right lower quadrant tenderness to palpation with mild guarding EXTREMITIES: Normal range of motion. No peripheral edema. SKIN: Warm dry normal color NEURO: Alert and oriented x3. PSYCH: Normal mood and affect H&P: Results Labs Labs: Short CBC 05/27/25 Range/Units 17:46 WBC 15.5 H (4.5-10.0) K/mm3 Hgb 12.0 (12.0-15.0) g/dL Hct 35.9 L (37.0-47.0) % Plt Count 257 (150-375) k/mm3 BMP 05/27/25 17:46 Sodium 132 L Potassium 4.1 Chloride 97 L Carbon Dioxide 29 BUN 14 Creatinine 0.74 Glucose 109 Calcium 10.1 Liver Function 05/27/25 Range/Units 17:46 Total Bilirubin 0.5 (0.2-1.3) mg/dL AST 32 (14-36) U/L ALT 31 (6-35) U/L Alkaline Phosphatase 81 (38-126) U/L Albumin 4.1 (3.5-5.1) g/dL Urine 05/27/25 Range/Units 17:46 Urine Color Yellow (Yellow) Urine Appearance Clear (Clear) Urine pH 8.5 (5.0-9.0) Ur Specific [place] 1.010 (1.001-1.035) Urine Protein Negative (Negative) mg/dL Urine Glucose (UA) Negative (Negative) mg/dL Imaging CT scan - abdomen: Radiologist's impression: CLINICAL INDICATION: Right lower quadrant abdominal pain COMPARISON: 09/25/2021. TECHNIQUE: Multiple contiguous axial images of the abdomen and pelvis were performed following the administration of with 100 mL Omnipaque-350 intravenous contrast The dose-length product (DLP) was 207.99 mGy-cm. Automated exposure control and iterative reconstruction technique were employed. FINDINGS/OBSERVATIONS: Visualized lower thorax: The bilateral lung bases are clear. The heart is of normal size, without pericardial effusion. Small hiatal hernia is present. Liver: The liver demonstrates homogeneous enhancement and is not enlarged. Gallbladder and biliary system: The gallbladder is only minimally distended, and otherwise unremarkable. Pancreas: The pancreas enhances homogeneously without ductal dilatation. Spleen: The spleen enhances homogeneously and is not enlarged. Kidneys: The bilateral kidneys enhance symmetrically without hydronephrosis or renal calculi. Adrenal glands: Unremarkable. Gastrointestinal tract: Fecal stasis within the colon. Appendix: The anderson of the appendix are hyperemic. The appendix is fluid-filled and distended measuring 10.3 mm in caliber (axial series, images 114 through 125) within surrounding inflammatory change. No discrete fluid collection is identified. No sign of perforation is present. Vasculature: Unremarkable. Lymph nodes: No pathologically enlarged or morphologically suspicious lymph nodes within the retroperitoneum or at the root of the mesentery. Pelvic structures: The bladder is decompressed, and otherwise unremarkable. The uterus is surgically absent. Body wall and musculoskeletal: Small fat-containing umbilical hernia. Age-appropriate degenerative disease within the lower thoracic and lumbosacral spines. IMPRESSION: Findings in the appropriate clinical scenario suggesting acute nonruptured appendicitis, as detailed above. Reviewed, dictated and finalized at location A. Assessment and Plan Assessment and plan (1) Acute appendicitis: Code(s): K35.80 - Unspecified acute appendicitis Status: Acute Assessment and Plan: -CT findings of acute appendicitis including hyperemia and dilation, no rupture or abscess -WBC 15.5 with report low grade fever and migration to right lower quadrant abdominal pain with emesis x1 yesterday -Dr. Lal consulted, will see patient tomorrow -NPO for admission -Rocephin and Flagyl given in ER and will be continued -History of IBS and prior diverticulitis episodes -Hold aspirin (2) Hyponatremia: Code(s): E87.1 - Hypo-osmolality and hyponatremia Status: Acute Assessment and Plan: -Sodium noted to be 132 on admission which is mild hyponatremia felt to be due to acute illness -Monitor with AM labs -IV fluids while NPO -Pain control (3) Hypertension: Qualifiers: Hypertension type: essential hypertension Qualified Code(s): I10 - Essential (primary) hypertension Code(s): I10 - Essential (primary) hypertension Status: Chronic Assessment and Plan: -History noted (4) IBS (irritable bowel syndrome): Qualifiers: Irritable bowel syndrome type: with diarrhea Qualified Code(s): K58.0 - Irritable bowel syndrome with diarrhea Code(s): K58.9 - Irritable bowel syndrome, unspecified Status: Chronic Assessment and Plan: -History noted including history of constipation Quality VTE Prophylaxis VTE prophylaxis: mechanical ordered If No VTE Prophylaxis Answer both mechanical and pharmacologic: Reason no pharmacologic proph: medical contraindication (Surgical consult) Hospitalist MIPS Advance Care Plan I have confirmed that the patient's Advanced Care Plan is present, code status is documented, or surrogate decision maker is listed in patient medical record.: Yes Medication Reconciliation I have utilized all available resources to obtain, update and review the patients current medications (includes all prescriptions, OTC, herbals, cannabis, and nutritional supplements).: Yes
--- OUTSIDE RECORDS SUMMARY | 2025-05-27 20:32 | XMS_ITS | Clinical Summary ---
Author Organization [facility] [employer] Address [address] [place] [address] Care Team Providers Care Storage Battery Charger Name Role Phone Charles Gordon Primary Care Provider [phone] Source Comments [facility],non-owned Affiliates and Associated Physician Practices is amultiple site organization consisting of ambulatory clinics and hospital sitesin [place], [place], [place]. This disclosure is being madepursuant to the Care Everywhere program and may not contain all information available regarding this patient. 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 Gender Identity Not on file Sexual Orientation [...] CDT Office Visit [facility] - PRODUCTION ASSISTANT [address] [place] [address] Karla Strong MD [address] [facility] [address] [place] [address] Health Maintenance Due Date Last [...] patient's age to complete this topic Insurance [facility] MEDICARE ADV [facility] MEDICARE ADV Care Teams Storage Battery Charger Relationship Specialty Start Date End Date Charles Gordon DO [address] [address] PCP - General Internal Medicine 04/21/25
--- OUTSIDE RECORDS SUMMARY | 2025-05-27 20:32 | XMS_ITS | Encounter Summary ---
Author Organization [facility] Address [address] [place] [address] Care Team Providers Care Bark Skinner Name Role Phone Darrel Castelan DO Primary Care Provider [phone] Charles Gordon Calos DO Primary Care Provider [phone] Encounter Details Date Type Department Care Team (Late Contact Info) Description 04/09/2023 Lab Requisition [facility] - DermPath Lab [address] [place] [address] Dina Melendez DO [address] [facility] [address] [place] [address] Social History Tobacco Use Types Packs/Day Years Used Date Smoking Tobacco: Former Smokeless Tobacco: Former Alcohol Use Standard Drinks/Week Comments Yes 0 (1 standard drink = 0.6 oz pur e alcohol) Comments No Sex and Gender Information Value Date Recorded Sex Assigned at Not on file 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 Gender Identity Not on file Sexual Orientation Not on file documented as of this encounter Plan of Treatment Upcoming Encounters Date Type Department Care Team (Late Contact Info) Description 07/20/2025 2:20 PM CDT Office Visit [facility] - DUCTFIXING PLUMBER [address] [facility] [place] [address] Karla Strong MD [address] [facility] [address] [place] [address] documented as of this encounter Procedures Procedure Name Priority Date/Time Associated Diagnosis Comments DERMATOPATHOLOGY Routine 04/09/2023 10:5 4 AM CDT documented in this encounter Results * DERMATOPATHOLOGY (04/09/2023 10:54 AM CDT) Case Report Dermatopathology Report Case: [id number] Authorizing Provider: Dina Melendez DO Collected: 04/09/2023 10:54 AM Ordering Location: [facility] DermPath Lab Received: 04/10/2023 03:21 PM Pathologist: [...] characteristic determined by the Dermatopathology Laboratory at [facility], directed by Dr. Harlan Peralta. These tests need not be, and therefore are not, approved by the [place] Food and Drug Administration. The tests are used for clinical purposes. Billing Codes Specimen Charges Stain Charges 85861 1 3 3:59 PM CDT DERMATOPATHOLOGY LABORATORY Embedded Images 3 3:59 PM CDT DERMATOPATHOLOGY LABORATORY Pathology/Cytolo gy TISSUE SPECIMEN FROM SKIN / Unknown 04/09/2023 10:54 AM CDT 04/10/2023 3:21 PM CDT us Dina Melendez DO LAB - PATHOLOGY/CYTOLOGY ORDERABLES Final Result DERMATOPATHOLOGY LABORATORY [facility] - Department of Dermatology [facility] [address] [place] [address], [address] [phone] documented in this encounter Visit Diagnoses Not on filedocumented in this encounter Care Teams Bark Skinner Relationship Specialty Start Date End Date Darrel Castelan DO [address] [place] [address] PCP - General 07/06/15 04/20/25 Charles Gordon DO [address] [place] [address] PCP - General Internal Medicine 04/21/25 documented as of this encounter
--- OUTSIDE RECORDS SUMMARY | 2025-05-27 20:32 | XMS_ITS | Clinical Summary ---
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 Gender Identity Not on file Sexual Orientation Not on file Obstetrics History Last Filed Vital Signs Vital Sign Reading Time Taken Comments Blood Pressure 131/77 10/30/2023 12:55 PM RAILROAD SIGNAL OPERATOR Pulse 65 10/30/2023 12:55 PM RAILROAD SIGNAL OPERATOR Temperature 35.8 C (96.5 F) 10/30/2023 12:55 PM RAILROAD SIGNAL OPERATOR Respiratory Rate 16 09/28/2023 8:26 AM RAILROAD SIGNAL OPERATOR Oxygen Saturation 98% 09/28/2023 11:55 AM RAILROAD SIGNAL OPERATOR Inhaled Oxygen Concentration - - Weight 60.6 kg (133 lb 9.6 oz) 09/13/2023 12:35 PM RAILROAD SIGNAL OPERATOR Height 162.6 cm (5' 4) 09/13/2023 12:35 PM RAILROAD SIGNAL OPERATOR Body Mass Index 22.93 09/13/2023 12:35 PM RAILROAD SIGNAL OPERATOR Plan of Treatment Health Maintenance Due [...] 07/16, 12/06/2012 Medical Devices Implanted Type Area Recovery Collector Device Identifier Shelf Expiration Date Model / Serial / Lot [employer] [id number] Bcm Swivelock 4.75mm 24.5mm Self Punch Vent Shoulder [place] Suture - Sn/A - [id number] Implanted:Qty: 1 on 02/27/2019 by Lonnie Bettencourt MD at [facility] Right: Shoulder [employer] 11/14/2020 [id number] / N/A / Insurance AETNA MEDICARE AETNA MEDICARE AETNA MEDICARE Advance Directives For more information, please contact: [phone] * Full Code (Latest Code Status on File) Date Activated Date Inactivated Comments 09/25/2023 12:50 PM 09/28/2023 8:01 PM Care Teams Property Valuer Relationship Specialty Start Date End Date Darrel Castelan MD [address] [place] [address] PCP - General 01/12/17 Felix Hill MD [id number] [place] [address] Surgeon Colon and Rectal Surgery 07/25/23 Vijay Velázquez MD [phone] [place] [address] Consulting Physician Urology 08/19/23 Daniel Dyer MD [address] [facility] [address] [place] [address] Gastroenterology 09/25/23
--- NOTE | 2025-05-27 20:55 | ADMGEN ---
This patient, Jade Aragon, was admitted to Medical Room 252-01. Patient/family oriented to hospital policies and general routines including ID bracelet, bed and alarms, visiting hours, pain management, procedures, bathroom and other care routines, personal items, smoking policy, room service/diet, and visiting hours. Information on how to activate the Rapid Response Team has been discussed. Patient/Family are encouraged to report perceived risks to care and to ask questions if they do not understand what they are told or what they should do.
[2025-05-27] MEDS: SODIUM CHLORIDE 0.9% IV 1,000 ML 100 ML IV CONT (21:07)
[2025-05-28] VITALS (19 sets, daily range): BP systolic 117–170; BP diastolic 52–97; PULSE 65–85; RESP 12–20; TEMP 36.3–37.2; O2SAT 92–100
[2025-05-28] MEDS: BUPIVACAINE/EPINEPHRINE 0.5% 50 ML VIAL 30 ML INFILTRATE (01:11)
[2025-05-28 04:46] LABS: Hematocrit 32.0 % (37.0-47.0); Hemoglobin 10.4 g/dL (12.0-15.0); Immature Granulocyte Percent A 0.1 % (0-0.5); Lymphocytes Absolute Auto 2.14 K/mm3 (0.9-3.2); Mean Corpuscular HGB Conc 32.5 g/dl (32-36); Mean Corpuscular Hemoglobin 31.0 pg (26-34); Mean Corpuscular Volume 95.2 fl (80-100); Nucleated Red Blood Cells Absolute Auto 0.000 K/mm3 (0.0-0.012); Nucleated Red Blood Cells Perc 0.0 % (0.0-0.2); Platelet Count Result 192 k/mm3 (150-375); Red Blood Count 3.36 M/mm3 (4.2-5.4); White Blood Count 8.4 K/mm3 (4.5-10.0)
[2025-05-28 05:00] LABS: Alanine Aminotransferase 23 U/L (6-35); Albumin Level 3.1 g/dL (3.5-5.1); Alkaline Phosphatase 67 U/L (38-126); Anion Gap 3 mmol/L (4-12); Aspartate Amino Transferase 24 U/L (14-36); Bilirubin,Total 0.4 mg/dL (0.2-1.3); Blood Urea Nitrogen 8 mg/dL (7-17); Calcium 8.6 mg/dL (8.4-10.2); Carbon Dioxide 26 mmol/L (22-30); Chloride 108 mmol/L (98-107); Estimated CRCL calculation 56 ml/min; Estimated Glomerular Filt Rate > 60; Glucose 103 mg/dL (65-110); Magnesium 1.9 mg/dL (1.6-2.3); Potassium 3.7 mmol/L (3.4-5.0); Sodium 137 mmol/L (137-145); Total Protein 5.5 g/dL (6.3-8.2)
[2025-05-28] MEDS: metroNIDAZOLE 500 MG/ISO 100ML 500 MG/100 ML BAG 100 MG IVPB ×3 (05:31→21:03)
--- NOTE | 2025-05-28 08:09 | P.CONGS_ITS ---
Assessment and Plan Assessment and plan (1) Acute appendicitis: Code(s): K35.80 - Unspecified acute appendicitis Status: Acute Assessment and Plan: * CT scan reviewed and discussed with the patient. There is evidence of acute appendicitis. No perforation or abscess evident on CT. We discussed both nonoperative treatment with IV antibiotics/monitoring versus proceeding with surgery. We discussed the risks of recurrence or treatment failure with the option of antibiotic therapy. I also discussed the details of a laparoscopic appendectomy, possible open, under general anesthesia that would be done by Dr. Lal. Description of the procedure, risks, benefits, alternatives, and expected recovery were discussed. She agrees to proceed with surgery. Will keep her NPO and continue IV antibiotics, IV fluids, and analgesics as needed pre-operatively. She has been added to the surgery schedule for today. (2) IBS (irritable bowel syndrome): Qualifiers: Irritable bowel syndrome type: with diarrhea Qualified Code(s): K58.0 - Irritable bowel syndrome with diarrhea Code(s): K58.9 - Irritable bowel syndrome, unspecified Status: Chronic Assessment and Plan: * History of IBS and has been seen by GI many times in the past. She has a long- standing history of constipation and there is a significant amount of stool in her colon on CT. Patient recently restarted Metamucil OTC, which she has not taken since her colectomy, and plans to f/u with her PCP. (3) Hypertension: Qualifiers: Hypertension type: essential hypertension Qualified Code(s): I10 - Essential (primary) hypertension Code(s): I10 - Essential (primary) hypertension Status: Chronic Plan I have discussed the patient's case and plan of care with Dr. Lal. History of Present Illness Consult details Consult date: 05/28/25 Reason for consult: other (Acute uncomplicated appendicitis) Requesting physician: Shay Mitchell MD Narrative: This is a 74-year-old woman with a history of IBS with constipation, hypertension, and diverticulitis s/p sigmoid resection in 2022, who we have been asked to see in surgical consultation for acute appendicitis. She had onset of cramping lower pain 2 days ago in the evening. She reports having the symptoms after eating fried fish. During the night, she had 2 episodes of vomiting and thought it was related to food poisoning. Yesterday, she continued to have lower abdominal pain, which she describes as cramping. She tried taking a nap, and when she woke up her pain had localized to the right lower quadrant. She also had a fever of 101.1? F. Therefore she came into the ED for evaluation. [place] [address] scan of the abdomen and pelvis showed acute uncomplicated appendicitis. No evidence of perforation or abscess. She was admitted and started on broad-spectrum IV antibiotics. She is now seen on the medical floor. 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 She had a sigmoid colon resection at [place] in September of 2023 due to the stricture. She also reports having a panniculectomy in the and a vaginal hysterectomy many years ago. Review of Systems 2 Review of Systems: All systems reviewed & are unremarkable except as noted in HPI and below PMFSH Past Medical History Medical History Hypertension Thyroid goiter IBS (irritable bowel syndrome) Surgical History Surgical History Hx of repair of right rotator cuff Hx of bilateral cataract extraction Hx of blepharoplasty bilateral History of trigger finger left hand 3rd and 4th finger Hx of abdominoplasty Hx of vaginal hysterectomy Hx of right breast biopsy Right excisional breast in 1992 Family History Family History Father Family history of alcoholism, Onset Age: 84 Mother CHF (congestive heart failure) Failure to thrive Sibling Hypertension Heart disease Family history of alcoholism CAD (coronary artery disease) PAD (peripheral artery disease) PVD (peripheral vascular disease) Arthritis Heart valve replaced AAA (abdominal aortic aneurysm) Other Breast cancer Social History Social History Smoking packs per day: 1 Smoking cigarettes per day: 20.0 Years smoked: 20 Smoking pack-years: 20.00 Smoking status: Former smoker Second hand tobacco smoke exposure: No Alcohol intake: current Drinks per week: 7 Alcohol use details: Cocktails and wine daily Substance use: never Substance use type: does not use Do You Feel Safe in your Home?: Yes Lack of Transportation: No Lack of Food: Never True Current Housing: I Have Housing Concerned About Future Housing: No Difficulty Paying Gas/Electric Bills: No Difficulty Paying for Meds: No Currently Unemployed: No Education: Trade/Vocational Certificate Difficulty w/ Childcare or Family Care: No Living arrangements: with family Occupation/Education: retired Spiritual care concerns: No Meds Home Medications and Allergies Home Medications ?Medication ?Instructions ?Recorded ?Confirmed ?Type aspirin 81 mg tablet,delayed 81 mg PO HS 11/05/19 05/27/25 History release calcium carbonate 260 mg PO BID 05/11/20 05/27/25 History dicyclomine 10 mg capsule 10 mg PO BID PRN Abdominal 12/06/23 05/27/25 Rx Discomfort #60 caps carvedilol 6.25 mg tablet (Coreg) 6.25 mg PO Q12H #180 tabs 10/28/24 05/27/25 Rx fosinopril 10 mg tablet 10 mg PO BID #180 tabs 10/28/24 05/27/25 Rx Collagen Peptides See Rx Instructions .Route DAILY 05/12/25 05/27/25 History acyclovir 5 % topical ointment 1 applic topical BID PRN cold sores 05/27/25 05/27/25 History Allergies Allergy/AdvReac Type Severity Reaction Status Date / Time Penicillins Allergy Mild Rash Verified 05/12/25 08:19 silicone tape Allergy Intermediate large Uncoded 05/12/25 08:19 water blisters Vital Signs Vital Signs - 24 hr 05/27/25 17:37 05/27/25 19:00 05/27/25 19:15 Temperature 98.1 F Pulse Rate 79 Respiratory Rate 16 Blood Pressure 138/64 Pulse Oximetry 98 98 96 Oxygen Delivery 05/27/25 19:18 05/27/25 19:30 05/27/25 19:45 Temperature Pulse Rate 85 89 Respiratory Rate 21 H 16 Blood Pressure 146/80 H Pulse Oximetry 96 95 97 Oxygen Delivery 05/27/25 19:48 05/27/25 20:10 05/27/25 20:36 Temperature Pulse Rate 86 88 87 Respiratory Rate 18 18 19 Blood Pressure 151/81 H Pulse Oximetry 96 98 97 Oxygen Delivery 05/27/25 21:55 05/27/25 22:00 05/27/25 23:21 Temperature 97.3 F L Pulse Rate 88 78 Respiratory Rate 76 H Blood Pressure 152/73 H Pulse Oximetry 99 Oxygen Delivery Room Air 05/28/25 00:26 05/28/25 06:00 Temperature 97.3 F L Pulse Rate 80 Respiratory Rate 16 Blood Pressure 130/59 L Pulse Oximetry 98 98 Oxygen Delivery Room Air Exam 2 Const: General: comfortable and no acute distress Nutritional Appearance: a verage body habitus Orientation/consciousness: patient oriented x3 HENMT: Head: normocephalic and atraumatic Ears: hearing grossly normal bilaterally Mouth: Yes moist mucous membranes Eyes: General: appearance normal, both eyes and all related structures P upils: Equal, round and reactive pupils present Neck: Neck: normal visual inspection and full ROM Resp: Effort & Inspection: no respiratory distress Auscultation: clear to auscultation bilaterally Cardio: Rate: regular rate Rhythm: regular rhythm Peripheral pulses: P eripheral pulses 2+ throughout GI: Inspection: non-distended and scar (Few port site scars, large scar across the lower abdomen) GI Palp: Yes Soft to palpation, Yes Tenderness to palpation present (GI) (Right lower quadrant), Yes Guarding due to palpation present (GI) (Right lower quadrant) and No Rebound tenderness present A uscultation: normal bowel sounds Skin: General skin exam: normal color Neuro: General: moves all extremities and no focal motor deficits Speech: n ormal speech Motor exam (neuro): 5/5 motor strength present throughout Extrem: General: normal to inspection and no edema Psych: Mental Status: mental status grossly normal Attitude: cooperative Insight: Good insight present (Psych) Judgement: Good judgement present (Psych) Results Labs 05/28/25 04:22 05/28/25 04:22 Labs: Abnormal lab results 05/27/25 05/28/25 Range/Units 17:46 04:22 WBC 15.5 H (4.5-10.0) K/mm3 RBC 3.94 L 3.36 L (4.2-5.4) M/mm3 Hgb 10.4 L (12.0-15.0) g/dL Hct 35.9 L 32.0 L (37.0-47.0) % Lymph % (Auto) 14.9 L (18.3-44.2) % [place] % (Auto) 12.0 H 10.5 H (2.6-8.5) % [place] # (Auto) 1.9 H 0.9 H (0.1-0.6) K/mm3 Abs Immat Gran (auto) 0.05 H (0.00-0.031) K/mm3 Absolute Neuts (auto) 11.1 H (1.3-6.7) K/mm3 Sodium 132 L (137-145) mmol/L Chloride 97 L 108 H (98-107) mmol/L Anion Gap 3 L (4-12) mmol/L Creatinine 0.68 L (0.7-1.0) mg/dL Total Protein 5.5 L (6.3-8.2) g/dL Albumin 3.1 L (3.5-5.1) g/dL Leukocyte Esterase Rfl Trace H (Negative) LUIS CARLOS/UL Diabetes panel 05/27/25 05/28/25 Range/Units 17:46 04:22 Sodium 132 L 137 (137-145) mmol/L Potassium 4.1 3.7 (3.4-5.0) mmol/L Chloride 97 L 108 H (98-107) mmol/L Carbon Dioxide 29 26 (22-30) mmol/L BUN 14 8 D (7-17) mg/dL Creatinine 0.74 0.68 L (0.7-1.0) mg/dL Glucose 109 103 (65-110) mg/dL Calcium 10.1 8.6 (8.4-10.2) mg/dL AST 32 24 (14-36) U/L ALT 31 23 (6-35) U/L Alkaline Phosphatase 81 67 (38-126) U/L Total Protein 6.8 5.5 L (6.3-8.2) g/dL Albumin 4.1 3.1 L (3.5-5.1) g/dL Calcium panel 05/27/25 05/28/25 Range/Units 17:46 04:22 Calcium 10.1 8.6 (8.4-10.2) mg/dL Albumin 4.1 3.1 L (3.5-5.1) g/dL Pituitary panel 05/27/25 05/28/25 Range/Units 17:46 04:22 Sodium 132 L 137 (137-145) mmol/L Potassium 4.1 3.7 (3.4-5.0) mmol/L Chloride 97 L 108 H (98-107) mmol/L Carbon Dioxide 29 26 (22-30) mmol/L BUN 14 8 D (7-17) mg/dL Creatinine 0.74 0.68 L (0.7-1.0) mg/dL Glucose 109 103 (65-110) mg/dL Calcium 10.1 8.6 (8.4-10.2) mg/dL Adrenal panel 05/27/25 05/28/25 Range/Units 17:46 04:22 Sodium 132 L 137 (137-145) mmol/L Potassium 4.1 3.7 (3.4-5.0) mmol/L Chloride 97 L 108 H (98-107) mmol/L Carbon Dioxide 29 26 (22-30) mmol/L BUN 14 8 D (7-17) mg/dL Creatinine 0.74 0.68 L (0.7-1.0) mg/dL Glucose 109 103 (65-110) mg/dL Calcium 10.1 8.6 (8.4-10.2) mg/dL Total Bilirubin 0.5 0.4 (0.2-1.3) mg/dL AST 32 24 (14-36) U/L ALT 31 23 (6-35) U/L Alkaline Phosphatase 81 67 (38-126) U/L Total Protein 6.8 5.5 L (6.3-8.2) g/dL Albumin 4.1 3.1 L (3.5-5.1) g/dL All other labs normal. Imaging Additional studies: ITS Impressions Abdomen/Pelvis CT 05/27/25 18:25 IMPRESSION: Findings in the appropriate clinical scenario suggesting acute nonruptured appendicitis, as detailed above.
[2025-05-28] MEDS: CALCIUM CARBONATE (OSCAL) 250 MG TABLET PO ×2 (09:12→16:56)
[2025-05-28] MEDS: SODIUM CHLORIDE 0.9% IV 1,000 ML 100 ML IV CONT (09:44)
--- NOTE | 2025-05-28 10:51 | ECG_ITS ---
Test Date: 2025-05-28 11:07:31 Measurements Intervals [place] Rate: 73 P: 73 AK: 183 QRS: 49 QRSD: 88 T: 60 QT: 382 QTc: 424 Interpretive Statements SINUS RHYTHM BASELINE ARTIFACT- V5-V6 NORMAL ECG No previous ECG available for comparison Electronically Signed On 05-28-2025 12:33:25 CDT by Felix Steele D.O.
[2025-05-28] MEDS: LACTATED RINGERS 1,000 ML 30 ML IV CONT ×2 (11:00→12:19)
--- NOTE | 2025-05-28 11:05 | WPDHPUPDATE1 ---
History and Physical Update Update Date/Time: 05/28/25 11:05 History and Physical has been reviewed, including an updated exam of the patient. There are NO changes in the patient's condition. Risks, benefits, and alternatives have been discussed and questions answered. Patient agrees to proceed with procedure.
--- NOTE | 2025-05-28 11:08 | WPDANESEPPF ---
Anes - Initial Pre Proc Eval Procedure: Operation Date: 05/28/25 11:00 Proposed Procedures p Laparoscopic Appendectomy - Pankaj Lal DO Date/Time: 05/28/25 11:08 Surgeon: Aden Arciniega MD Pre Op Diagnosis: Acute uncomplicated appendicitis Patient Data Age: 74 Gender: F Height: 1.65 m Weight: 61 kg Last Vital Signs Temp 98.9 F 05/28/25 10:55 Pulse 75 05/28/25 10:55 Resp 16 05/28/25 10:55 BP 156/72 H 05/28/25 10:55 Pulse Ox 97 05/28/25 10:55 O2 Del Method Room Air 05/28/25 10:55 Allergies Allergy/AdvReac Type Severity Reaction Status Date / Time Penicillins Allergy Mild Rash Verified 05/28/25 10:53 silicone tape Allergy Intermediate large Uncoded 05/28/25 10:53 water blisters Home Medications ?Medication ?Instructions ?Recorded ?Confirmed ?Type aspirin 81 mg tablet,delayed 81 mg PO HS 11/05/19 05/27/25 History release calcium carbonate 260 mg PO BID 05/11/20 05/27/25 History dicyclomine 10 mg capsule 10 mg PO BID PRN Abdominal 12/06/23 05/27/25 Rx Discomfort #60 caps carvedilol 6.25 mg tablet (Coreg) 6.25 mg PO Q12H #180 tabs 10/28/24 05/27/25 Rx fosinopril 10 mg tablet 10 mg PO BID #180 tabs 10/28/24 05/27/25 Rx Collagen Peptides See Rx Instructions .Route DAILY 05/12/25 05/27/25 History acyclovir 5 % topical ointment 1 applic topical BID PRN cold sores 05/27/25 05/27/25 History Laboratory Tests 05/27/25 05/27/25 05/28/25 17:46 19:19 04:22 WBC 15.5 H K/mm3 8.4 K/mm3 (4.5-10.0) (4.5-10.0) RBC 3.94 L M/mm3 3.36 L M/mm3 (4.2-5.4) (4.2-5.4) Hgb 12.0 g/dL 10.4 L g/dL (12.0-15.0) (12.0-15.0) Hct 35.9 L % 32.0 L % (37.0-47.0) (37.0-47.0) MCV 91.1 fl 95.2 fl (80-100) (80-100) MCH 30.5 pg 31.0 pg (26-34) (26-34) MCHC 33.4 g/dl 32.5 g/dl (32-36) (32-36) RDW 12.7 % 12.7 % (11.5-14.5) (11.5-14.5) Plt Count 257 k/mm3 192 k/mm3 (150-375) (150-375) MPV 9.6 fl 9.9 fl (7.4-10.4) (7.4-10.4) Immature Gran % (Auto) 0.3 % 0.1 % (0-0.5) (0-0.5) Neut % (Auto) 71.7 % 60.2 % (45.5-73.1) (45.5-73.1) Lymph % (Auto) 14.9 L % 25.6 % (18.3-44.2) (18.3-44.2) [place] % (Auto) 12.0 H % 10.5 H % (2.6-8.5) (2.6-8.5) Eos % (Auto) 0.8 % 2.8 % (0-4.4) (0-4.4) Baso % (Auto) 0.3 % 0.8 % (0.2-1.2) (0.2-1.2) Lymph # (Auto) 2.31 K/mm3 2.14 K/mm3 (0.9-3.2) (0.9-3.2) [place] # (Auto) 1.9 H K/mm3 0.9 H K/mm3 (0.1-0.6) (0.1-0.6) Eos # (Auto) 0.1 K/mm3 0.2 K/mm3 (0-0.3) (0-0.3) Baso # (Auto) 0.0 K/mm3 0.1 K/mm3 (0.0-0.1) (0.0-0.1) Abs Immat Gran (auto) 0.05 H K/mm3 0.01 K/mm3 (0.00-0.031) (0.00-0.031) Absolute Neuts (auto) 11.1 H K/mm3 5.0 K/mm3 (1.3-6.7) (1.3-6.7) Absolute Nucleated RBC 0.000 K/mm3 0.000 K/mm3 (0.0-0.012) (0.0-0.012) Nucleated RBC % 0.0 % 0.0 % (0.0-0.2) (0.0-0.2) PT 13.5 Seconds (11.1-14.7) INR 1.0 APTT 31.3 Seconds (22.3-36.8) Sodium 132 L mmol/L 137 mmol/L (137-145) (137-145) Potassium 4.1 mmol/L 3.7 mmol/L (3.4-5.0) (3.4-5.0) Chloride 97 L mmol/L 108 H mmol/L (98-107) (98-107) Carbon Dioxide 29 mmol/L 26 mmol/L (22-30) (22-30) Anion Gap 6 mmol/L 3 L mmol/L (4-12) (4-12) BUN 14 mg/dL 8 D mg/dL (7-17) (7-17) Creatinine 0.74 mg/dL 0.68 L mg/dL (0.7-1.0) (0.7-1.0) Estim Creat Clear Calc 52 ml/min 56 ml/min Estimated GFR > 60 > 60 (59 - ) (59 - ) Glucose 109 mg/dL 103 mg/dL (65-110) (65-110) Lactic Acid 0.8 mmol/L (0.7-2.0) Calcium 10.1 mg/dL 8.6 mg/dL (8.4-10.2) (8.4-10.2) Magnesium 1.9 mg/dL (1.6-2.3) Total Bilirubin 0.5 mg/dL 0.4 mg/dL (0.2-1.3) (0.2-1.3) AST 32 U/L 24 U/L (14-36) (14-36) ALT 31 U/L 23 U/L (6-35) (6-35) Alkaline Phosphatase 81 U/L 67 U/L (38-126) (38-126) Total Protein 6.8 g/dL 5.5 L g/dL (6.3-8.2) (6.3-8.2) Albumin 4.1 g/dL 3.1 L g/dL (3.5-5.1) (3.5-5.1) Lipase 102 U/L (23-300) Urine Color Yellow (Yellow) Urine Appearance Clear (Clear) Urine pH 8.5 (5.0-9.0) Ur Specific [place] 1.010 (1.001-1.035) Urine Protein Negative mg/dL (Negative) Urine Glucose (UA) Negative mg/dL (Negative) Urine Ketones Negative mg/dL (Negative) Ur Blood (Man) Negative (Negative) Urine Nitrate Negative (Negative) Urine Bilirubin Negative (Negative) Urine Urobilinogen 0.2 mg/dL (<2.0) Leukocyte Esterase Rfl Trace H LUIS CARLOS/UL (Negative) Urine RBC 0-2 /hpf (0-2) Urine WBC 0-5 /hpf (0-3) Ur Squamous Epith Cells None seen /hpf (Few) Urine Bacteria None seen /hpf Urine Casts 0-2 Patient hx anesthesia problems: none Family hx anesthesia problems: none Results Review: All pre-operative results and documents have been reviewed as part of the pre-operative evaluation. [facility] Past Medical History Medical History Hypertension Thyroid goiter IBS (irritable bowel syndrome) Surgical History Surgical History Hx of repair of right rotator cuff Hx of bilateral cataract extraction Hx of blepharoplasty bilateral History of trigger finger left hand 3rd and 4th finger Hx of abdominoplasty Hx of vaginal hysterectomy Hx of right breast biopsy Right excisional breast in 1992 Family History Family History Father Family history of alcoholism, Onset Age: 84 Mother CHF (congestive heart failure) Failure to thrive Sibling Hypertension Heart disease Family history of alcoholism CAD (coronary artery disease) PAD (peripheral artery disease) PVD (peripheral vascular disease) Arthritis Heart valve replaced AAA (abdominal aortic aneurysm) Other Breast cancer Social History Social History Smoking packs per day: 1 Smoking cigarettes per day: 20.0 Years smoked: 20 Smoking pack-years: 20.00 Smoking status: Former smoker Second hand tobacco smoke exposure: No Alcohol intake: current Drinks per week: 7 Alcohol use details: Cocktails and wine daily Substance use: never Substance use type: does not use Do You Feel Safe in your Home?: Yes Lack of Transportation: No Lack of Food: Never True Current Housing: I Have Housing Concerned About Future Housing: No Difficulty Paying Gas/Electric Bills: No Difficulty Paying for Meds: No Currently Unemployed: No Education: Trade/Vocational Certificate Difficulty w/ Childcare or Family Care: No Living arrangements: with family Occupation/Education: retired Spiritual care concerns: No Anes - Eval Final PreProcedure Day of Procedure 05/28/25 11:08 Patient weight: normal Heart: regular rate and rhythm Lungs: clear to auscultation Airway: Mallampati scale class II Neurological: alert and oriented Last oral intake: >/= 8 hours ASA classification: III Emergent: no Anesthetic plan: proceed Anesthesia type and monitoring: general ETT and standard monitoring Results Review: All pre-operative results and documents have been reviewed as part of the pre-operative evaluation. Informed Consent: The patient's anesthetic plan and its attendant risks and benefits were discussed with the patient/family/POA. Questions were solicited and answers provided to the satisfaction of the patient/family/POA.
--- NOTE | 2025-05-28 11:49 | S_PTH ---
PATIENT: Jade Aragon LOC: [id number] U#:[id number] AGE/SX: 74/F ROOM: 252 RE05/27/[address]: Aden Arciniega MD : 1950 BED: 01 DIS: 05/29/2025 SPEC #: [id number] RECD: 05/28/25 13:28 STATUS: ELKIN REQ #: [id number] KATHY: 05/28/25 11:[address]: Pankaj Lal DEPT: [facility] Surgical RECD BY: Maria D Shetty ENTERED: 05/28/25 13:28 SP TYPE: Surgical OTHR DR: MD Charles Le, Tissues: A - Appendix Procedures: Hematoxylin and Eosin Stain Gross and Microscopic Level 3
--- NOTE | 2025-05-28 12:01 | P.OP_ITS ---
Procedure Note - Detailed Date of Procedure 05/28/25 Pre-op Diagnosis Acute uncomplicated appendicitis Post-op Diagnosis Same Procedure Performed Laparoscopic appendectomy Surgeon Pankaj Lal, DO Anesthesia General and Local (0.5% bupivicaine with epinephrine) Indications This is a 74-year-old woman who presented to the emergency department with right lower quadrant pain. Symptoms started the day before. She had an elevated white blood count and CT showed evidence of acute appendicitis. She was admi tted and placed on broad-spectrum IV antibiotics. Discussions were made with the patient about treatment options and decision was made to proceed with laparoscopic appendectomy, possible open. Findings Laparoscopic appendectomy was performed. The appendix appeared dilated and indurated, but there was no evidence of perforation or abscess. The base of the appendix appeared healthy and viable. The appendix was removed and sent to the lab for pathology. No other intra-abdominal abnormalities were noted. Description of Procedure Procedure as well as risks, benefits, and alternatives were explained to the patient. The patient agreed to proceed. Written consent was obtained and placed in chart prior to procedure. The patient was brought back to surgical suite. [] was placed supine on operating table. Time-out was done to confirm the patient and procedure. The patient was then intubated by the Anesthesia Department. [] abdomen was prepped and draped in sterile fashion using chlorhexidine prep. A 5 mm incision was made just to the left of the patient's umbilicus and a 5 mm Optiview trocar was advanced through the abdominal layers under direct visualization. Once inside the peritoneal cavity, carbon dioxide insufflation was used to create a pneumoperitoneum. The camera was inserted and the abdomen was inspected. No immediate abnormalities were identified. The patient was then placed in slight Trendelenburg position and rotated to the left. A 5 mm incision was made in the suprapubic region in midline and a 5 mm trocar was inserted under direct visualization. A 12 mm incision was made in the left lower quadrant and a 12 mm trocar was inserted under direct visualizati on. The right lower quadrant was carefully inspected. The cecum was identified and then this was traced back to the appendix. The appendix was identified and grasped at the mesoappendix and lifted anteriorly. Careful blunt dissection was carried out at the base of the appendix through the mesoappendix using a [place] grasper. An Endo-ADELE 45 mm blue load stapler was then advanced across the base of the appendix and clamped and fired. A white reload was then clamped across the mesoappendix and fired. This freed up our appendix completely. It was then placed in an EndoCatch bag and removed through the left lower quadrant port. The staple lines were then inspected. Hemostasis appeared adequate and the staple lines appeared secure. The area was then irrigated with sterile saline. The pelvis was then carefully inspected and irrigated with sterile saline as well and the remainder of the abdomen was carefully inspected. The patient was then flattened out in bed. One final inspection was made around the abdominal cavity and no other abnormalities were seen. The left lower quadrant port was removed and a Jonny-Danielle cone was used to approximate the fascia with an 0 Vicryl simple interrupted suture. The remaining ports were then removed under direct visualization. The camera was removed and the pneumoperitoneum was released. 0.5% bupivacaine with epinephrine was inf iltrated locally around each of the incisions. The skin of the incisions was then approximated using 4-0 Monocryl subcuticular suture and Exofin glue was applied on top. The patient was then awakened from anesthesia, extubated, and transferred to Recovery. Estimated Blood Loss 50 Urine Output 300 Pathology Yes (Appendix) Complications No immediate complications Condition Stable Disposition Floor [facility] Billing Surgery - Charge Forward: Surgery Billing
--- NOTE | 2025-05-28 12:32 | PM.IMPN ---
Progress Note: A&P Assessment and Plan (1) Acute appendicitis: Code(s): K35.80 - Unspecified acute appendicitis Status: Acute Assessment and Plan: -CT findings of acute appendicitis including hyperemia and dilation, no rupture or abscess -WBC 15.5 with report low grade fever and migration to right lower quadrant abdominal pain with emesis x1 yesterday -Dr. Lal consulted, will see patient tomorrow -NPO for admission -Rocephin and Flagyl given in ER and will be continued -History of IBS and prior diverticulitis episodes -Hold aspirin npo this am, surgery consult (2) Hyponatremia: Code(s): E87.1 - Hypo-osmolality and hyponatremia Status: Acute Assessment and Plan: -Sodium noted to be 132 on admission which is mild hyponatremia felt to be due to acute illness -Monitor with AM labs -IV fluids while NPO -Pain control (3) Hypertension: Qualifiers: Hypertension type: essential hypertension Qualified Code(s): I10 - Essential (primary) hypertension Code(s): I10 - Essential (primary) hypertension Status: Chronic Assessment and Plan: -History noted (4) IBS (irritable bowel syndrome): Qualifiers: Irritable bowel syndrome type: with diarrhea Qualified Code(s): K58.0 - Irritable bowel syndrome with diarrhea Code(s): K58.9 - Irritable bowel syndrome, unspecified Status: Chronic Assessment and Plan: constipation/diarrhea chronic Time Spent With Patient Time with patient: 25 - 35 minutes Subjective Date/time seen: 05/28/25 12:32 Interval history: 74-year-old patient is admitted to the hospital for acute appendicitis. WBC 15.5, Hg 12 hematocrit 35.9. Mild hyponatremia with a sodium level of 132. Urinalysis with trace leukocyte esterase 0 2 RBC 0-5 wbc's no bacteria or nitrates. CT scan of the abdomen and pelvis showed hyperemia of the anderson of the appendix fluid-filled and distended 10.3 mm in caliber with surrounding inflammatory change no abscess or perforation. She was started on IV Rocephin and Flagyl. Surgery was consulted. Pain/nausea mngmnt. Review of Systems Review of Systems: All systems reviewed & are unremarkable except as noted in HPI and below Exam Narrative: GENERAL: Well-appearing, well-nourished, and in no acute distress. HEAD: Normocephalic, atraumatic. ENT:? Mucous membranes moist. CHEST: Clear to auscultation.? No respiratory distress. HEART: Regular rate and rhythm. ? Normal peripheral pulses. ABDOMEN: Soft, right lower quadrant tenderness to palpation with mild guarding EXTREMITIES: Normal range of motion. No peripheral edema. SKIN: Warm dry normal color NEURO: Alert and oriented x3. PSYCH: Normal mood and affect Const: General: comfortable Objective Data Vital Signs Vital Signs: Vital Signs - 24 hr 05/27/25 17:37 05/27/25 19:00 05/27/25 19:15 Temperature 98.1 F Pulse Rate 79 Respiratory Rate 16 Blood Pressure 138/64 Pulse Oximetry 98 98 96 Oxygen Delivery 05/27/25 19:18 05/27/25 19:30 05/27/25 19:45 Temperature Pulse Rate 85 89 Respiratory Rate 21 H 16 Blood Pressure 146/80 H Pulse Oximetry 96 95 97 Oxygen Delivery 05/27/25 19:48 05/27/25 20:10 05/27/25 20:36 Temperature Pulse Rate 86 88 87 Respiratory Rate 18 18 19 Blood Pressure 151/81 H Pulse Oximetry 96 98 97 Oxygen Delivery 05/27/25 21:55 05/27/25 22:00 05/27/25 23:21 Temperature 97.3 F L Pulse Rate 88 78 Respiratory Rate 76 H Blood Pressure 152/73 H Pulse Oximetry 99 Oxygen Delivery Room Air 05/28/25 00:26 05/28/25 06:00 05/28/25 08:00 Temperature 97.3 F L Pulse Rate 80 Respiratory Rate 16 Blood Pressure 130/59 L Pulse Oximetry 98 98 Oxygen Delivery Room Air Room Air 05/28/25 09:12 05/28/25 09:12 05/28/25 10:55 Temperature 98.9 F Pulse Rate 65 65 75 Respiratory Rate 16 Blood Pressure 132/68 156/72 H Pulse Oximetry 96 97 Oxygen Delivery Room Air Intake/Output Intake/Output: Intake & Output 05/25/25 05/26/25 05/27/25 05/28/25 23:59 23:59 23:59 23:59 Intake Total 1050 1000 Output Total 300 Balance 1050 700 Meds/Results Medications: Active Medications Generic Name Dose Route Start Last Admin Trade Name Eric PRN Reason Stop Dose Admin Acetaminophen 650 mg 05/27/25 19:45 Acetaminophen 325 Mg Tablet PO Q4H PRN Mild Pain (1-3) or Fever Acyclovir 1 applic 05/27/25 23:07 Acyclovir 5% Ointment 15 Gm Tube TOPICAL BID PRN cold sores Calcium Carbonate 250 mg 05/28/25 09:00 05/28/25 09:12 Calcium Carbonate (Oscal) 250 Mg Tablet PO 250 mg BID NURIA Administration Carvedilol 6.25 mg 05/27/25 23:10 05/28/25 09:12 Carvedilol 6.25 Mg Tablet PO 6.25 mg Q12HR NURIA Administration Dicyclomine HCl 10 mg 05/27/25 23:07 Dicyclomine Hcl 10 Mg Capsule PO BID PRN Abdominal Discomfort Fentanyl Citrate 25 mcg 05/28/25 12:30 Fentanyl Citrate Inj (*Crx) 100 Mcg/2 Ml Vial IV PUSH Q2M PRN Pain Sodium Chloride 1,000 mls @ 100 mls/hr 05/27/25 19:50 05/28/25 09:44 Normal Saline Iv IV CONT 100 mls/hr .Q10H NURIA Administration Metronidazole 500 mg in 100 mls @ 100 mls/hr 05/28/25 06:00 05/28/25 05:31 Flagyl 500 Mg/Iso Soln 100 Ml IVPB 100 mls/hr Q8HR NURIA Administration Ceftriaxone Sodium 1 gm/ 50 mls @ 100 mls/hr 05/28/25 20:00 Sodium Chloride IVPB Q24H NURIA Lactated Ringer's 1,000 mls @ 30 mls/hr 05/28/25 12:20 05/28/25 12:19 Lr - Lactated Ringers Iv IV CONT Infused .Q24H NURIA Infusion Lactated Ringer's 1,000 mls @ 30 mls/hr 05/28/25 12:30 Lr - Lactated Ringers Iv IV CONT .Q24H NURIA Lactated Ringer's 1,000 mls @ 30 mls/hr 05/28/25 12:30 Lr - Lactated Ringers Iv IV CONT .Q24H NURIA Lisinopril 10 mg 05/27/25 23:15 05/28/25 09:12 Lisinopril 10 Mg Tablet PO 10 mg Q12HR NURIA Administration Morphine Sulfate 2 mg 05/27/25 19:45 Morphine Sulfate (*Crx) 2 Mg/Ml Inj IV PUSH Q2H PRN Pain Rated 7-10 Ondansetron HCl 4 mg 05/27/25 19:45 Ondansetron Inj 4 Mg/2 Ml Vial IV PUSH Q4H PRN Nausea Ondansetron HCl 4 mg 05/28/25 12:30 Ondansetron Inj 4 Mg/2 Ml Vial IV PUSH ONCE PRN Nausea Radiology Results: ITS Impressions Abdomen/Pelvis CT 05/27/25 18:25 IMPRESSION: Findings in the appropriate clinical scenario suggesting acute nonruptured appendicitis, as detailed above. Labs Labs: Laboratory Results - last 24 hr 05/27/25 05/27/25 05/28/25 17:46 19:19 04:22 WBC 15.5 H 8.4 RBC 3.94 L 3.36 L Hgb 12.0 10.4 L Hct 35.9 L 32.0 L MCV 91.1 95.2 MCH 30.5 31.0 MCHC 33.4 32.5 RDW 12.7 12.7 Plt Count 257 192 MPV 9.6 9.9 Immature Gran % (Auto) 0.3 0.1 Neut % (Auto) 71.7 60.2 Lymph % (Auto) 14.9 L 25.6 [place] % (Auto) 12.0 H 10.5 H Eos % (Auto) 0.8 2.8 Baso % (Auto) 0.3 0.8 Lymph # (Auto) 2.31 2.14 [place] # (Auto) 1.9 H 0.9 H Eos # (Auto) 0.1 0.2 Baso # (Auto) 0.0 0.1 Abs Immat Gran (auto) 0.05 H 0.01 Absolute Neuts (auto) 11.1 H 5.0 Absolute Nucleated RBC 0.000 0.000 Nucleated RBC % 0.0 0.0 PT 13.5 INR 1.0 APTT 31.3 Sodium 132 L 137 Potassium 4.1 3.7 Chloride 97 L 108 H Carbon Dioxide 29 26 Anion Gap 6 3 L BUN 14 8 D Creatinine 0.74 0.68 L Estim Creat Clear Calc 52 56 Estimated GFR > 60 > 60 Glucose 109 103 Lactic Acid 0.8 Calcium 10.1 8.6 Magnesium 1.9 Total Bilirubin 0.5 0.4 AST 32 24 ALT 31 23 Alkaline Phosphatase 81 67 Total Protein 6.8 5.5 L Albumin 4.1 3.1 L Lipase 102 Urine Color Yellow Urine Appearance Clear Urine pH 8.5 Ur Specific [place] 1.010 Urine Protein Negative Urine Glucose (UA) Negative Urine Ketones Negative Ur Blood (Man) Negative Urine Nitrate Negative Urine Bilirubin Negative Urine Urobilinogen 0.2 Leukocyte Esterase Rfl Trace H Urine RBC 0-2 Urine WBC 0-5 Ur Squamous Epith Cells None seen Urine Bacteria None seen Urine Casts 0-2 Quality VTE Prophylaxis VTE prophylaxis: mechanical ordered
[2025-05-28] MEDS: fentaNYL CITRATE INJ (*CRX) 100 MCG/2 ML VIAL 25 MCG IV PUSH ×2 (13:36→13:39)
[2025-05-28] MEDS: LACTATED RINGERS 1,000 ML 100 ML IV CONT (14:20)
[2025-05-28] MEDS: HYDROcodone/acetaminophen (*CRX) 5-325 MG TABLET 1 TAB PO ×2 (16:56→20:29)
[2025-05-28] MEDS: cefTRIAXone 1 GM in SODIUM CHLORIDE 0.9% IV 50 ML 100 ML IVPB (20:29)
[2025-05-29 03:43] VITALS: BP 113/66; PULSE 72; RESP 16; TEMP 36.9; O2SAT 96
[2025-05-29] MEDS: metroNIDAZOLE 500 MG/ISO 100ML 500 MG/100 ML BAG 100 MG IVPB (05:51)
[2025-05-29 05:56] LABS: Hematocrit 30.2 % (37.0-47.0); Hemoglobin 9.5 g/dL (12.0-15.0); Immature Granulocyte Percent A 0.4 % (0-0.5); Lymphocytes Absolute Auto 1.44 K/mm3 (0.9-3.2); Mean Corpuscular HGB Conc 31.5 g/dl (32-36); Mean Corpuscular Hemoglobin 30.1 pg (26-34); Mean Corpuscular Volume 95.6 fl (80-100); Nucleated Red Blood Cells Absolute Auto 0.000 K/mm3 (0.0-0.012); Nucleated Red Blood Cells Perc 0.0 % (0.0-0.2); Platelet Count Result 201 k/mm3 (150-375); Red Blood Count 3.16 M/mm3 (4.2-5.4); White Blood Count 8.1 K/mm3 (4.5-10.0)
[2025-05-29] MEDS: HYDROcodone/acetaminophen (*CRX) 5-325 MG TABLET 1 TAB PO ×2 (05:57→12:12)
[2025-05-29 07:05] LABS: Alanine Aminotransferase 19 U/L (6-35); Albumin Level 2.9 g/dL (3.5-5.1); Alkaline Phosphatase 60 U/L (38-126); Anion Gap 2 mmol/L (4-12); Aspartate Amino Transferase 23 U/L (14-36); Bilirubin,Total 0.3 mg/dL (0.2-1.3); Blood Urea Nitrogen 5 mg/dL (7-17); Calcium 8.4 mg/dL (8.4-10.2); Carbon Dioxide 27 mmol/L (22-30); Chloride 106 mmol/L (98-107); Estimated CRCL calculation 58 ml/min; Estimated Glomerular Filt Rate > 60; Glucose 103 mg/dL (65-110); Magnesium 1.8 mg/dL (1.6-2.3); Potassium 3.8 mmol/L (3.4-5.0); Sodium 135 mmol/L (137-145); Total Protein 5.1 g/dL (6.3-8.2)
[2025-05-29 07:43] VITALS: BP 115/58; PULSE 81; RESP 16; TEMP 36.6; O2SAT 97
--- NOTE | 2025-05-29 08:03 | P.DS_ITS ---
DS: Admitting Diagnosis Discharge Date 05/29 Admitting Diagnosis appendesitis DS: Discharge Diagnosis Discharge Diagnosis (1) Acute appendicitis: Code(s): K35.80 - Unspecified acute appendicitis Status: Acute (2) Hyponatremia: Code(s): E87.1 - Hypo-osmolality and hyponatremia Status: Acute (3) Hypertension: Qualifiers: Hypertension type: essential hypertension Qualified Code(s): I10 - Essential (primary) hypertension Code(s): I10 - Essential (primary) hypertension Status: Chronic (4) IBS (irritable bowel syndrome): Qualifiers: Irritable bowel syndrome type: with diarrhea Qualified Code(s): K58.0 - Irritable bowel syndrome with diarrhea Code(s): K58.9 - Irritable bowel syndrome, unspecified Status: Chronic DS: Summary Hospital Course Hospital Course: 74-year-old patient is admitted to the hospital for acute appendicitis. WBC 15.5, Hg 12 hematocrit 35.9. Mild hyponatremia with a sodium level of 132. Urinalysis with trace leukocyte esterase 0 2 RBC 0-5 wbc's no bacteria or nitrates. CT scan of the abdomen and pelvis showed hyperemia of the anderson of the appendix fluid-filled and distended 10.3 mm in caliber with surrounding inflammatory change no abscess or perforation. was started on rocephin and flagyl and surgery consulted. Had Laparoscopic appendectomy with Dr Yang on 05/28. Develop urinary retention overnight and required straigh cath. since then was able to void on her own without any issues. No n/v this am. Pod 1 status post laparoscopic appendectomy. WBC normal, afebrile. Patient is stable for discharge per surgery with afollow up in clinic with Dr. Yang in 2 weeks. Pain meds already sent to pt's pharmacy per surgery Status at Discharge Functional status at discharge: independent ambulation Overall status at discharge: patient is back to baseline Time Spent with Patient Time attestation: Total time spent providing and/or coordinating discharge services: Time spent: Greater than 30 minutes Exam 2 Narrative: GENERAL: Well-appearing, well-nourished, and in no acute distress. HEAD: Normocephalic, atraumatic. ENT:? Mucous membranes moist. CHEST: Clear to auscultation.? No respiratory distress. HEART: Regular rate and rhythm. ? Normal peripheral pulses. ABDOMEN: Soft, right lower quadrant tenderness to palpation with mild guarding EXTREMITIES: Normal range of motion. No peripheral edema. SKIN: Warm dry normal color. wounds from lap appendectomy- c/d/i, no erythema, no drainage NEURO: Alert and oriented x3. PSYCH: Normal mood and affect Const: General: comfortable DS: Data Data Completed and Pending Pending studies at discharge: Pending at discharge 05/28/25 11:49 Surgical [PTH] Routine Labs on day of discharge: Labs from last 24 hours 05/29/25 05/29/25 05:11 05:10 WBC 8.1 RBC 3.16 L Hgb 9.5 L Hct 30.2 L MCV 95.6 MCH 30.1 MCHC 31.5 L RDW 12.6 Plt Count 201 MPV 10.0 Immature Gran % (Auto) 0.4 Neut % (Auto) 67.4 Lymph % (Auto) 17.8 L [place] % (Auto) 10.4 H Eos % (Auto) 3.1 Baso % (Auto) 0.9 Lymph # (Auto) 1.44 [place] # (Auto) 0.8 H Eos # (Auto) 0.3 Baso # (Auto) 0.1 Abs Immat Gran (auto) 0.03 Absolute Neuts (auto) 5.5 Absolute Nucleated RBC 0.000 Nucleated RBC % 0.0 Sodium 135 L Potassium 3.8 Chloride 106 Carbon Dioxide 27 Anion Gap 2 L BUN 5 L Creatinine 0.65 L Estim Creat Clear Calc 58 Estimated GFR > 60 Glucose 103 Calcium 8.4 Magnesium 1.8 Total Bilirubin 0.3 AST 23 ALT 19 Alkaline Phosphatase 60 Total Protein 5.1 L Albumin 2.9 L Discharge Plan Discharge Attending physician on discharge: Aden Arciniega Consulting providers: Pankaj Yang Discharging Clinician: Marisa Perdomo Patient Disposition: Home Activity: other - see discharge instructions Diet: other - see discharge instructions Wound Care Instructions: other - see discharge instructions Discharge Instructions: DISCHARGE INSTRUCTION SHEET FOR HERNIA, GALLBLADDER AND APPENDIX SURGERIES DR. YANG PATIENT TO TAKE HOME 1. May shower in 24 hours, no soaking in bath x 2weeks. 2. Call office for: * Wound increasingly painful or bleeding * Vomiting * Fever of greater than 101 degrees 3. If no bowel movement for three days, take 1 oz. (30 ml) Milk of Magnesia or MiraLax 17g 1 to 2 times daily. 4. No heavy lifting > 10-15 pounds x weeks for laparoscopic cholecystectomy or appendectomy. 5. No driving for 3 days or while taking narcotic pain medications. 6. Ice to surgical site for 48 hours (30 min on, then 30 min off). 7. Up walking 10-30 minutes three times per day. 8. Resume previous home medications. 9. Follow-up 10-14 days in office for wound check or as previously scheduled. ([phone]) 10. Oral pain medications prescription to be sent to pharmacy. Take Tylenol 500mg every 6 hours and Ibuprofen 600mg every 6 hours for the first 2 days, then as needed. 11. NUTRITION: Start out by drinking fluids and increase your diet as tolerated. If you experience nausea, try dry toast, crackers, and 7-UP. If nausea or vomiting persists, contact your surgeon?s office. 12. Gallbladders-Low Fat Diet for 2 weeks (send care note of low fat diet) 13. Inguinal Hernias-wear scrotal support for 48 hours 14. Abdominal Hernias-if sent home with abdominal binder, wear for the first 2 weeks (may remove to shower or at night to sleep). Revised February 2019 Patient Instructions: Antibiotic Form Patient Language: Italian Stand Alone Forms: General Discharge Information Follow-up/Referrals: Pankaj Yang DO [Physician] - 2 Weeks Discharge Medications: New hydrocodone-acetaminophen 5-325 mg tablet 1 tablet PO Q4H PRN (Reason: pain) Qty: 10 0RF No Action aspirin 81 mg tablet,delayed release (DR/EC) 81 mg PO HS calcium carbonate 260 mg calcium (648 mg) tablet 260 mg PO BID Collagen Peptides See Rx Instructions .ROUTE DAILY Rx Instructions: 1 scoop daily; 1 scoop daily acyclovir 5 % ointment 1 applic TOPICAL BID PRN (Reason: cold sores) dicyclomine 10 mg capsule 10 mg PO BID PRN (Reason: Abdominal Discomfort) Qty: 60 2RF carvedilol [Coreg] 6.25 mg tablet 6.25 mg PO Q12H Qty: 180 3RF Rx Instructions: must administer with a meal/food fosinopril 10 mg tablet 10 mg PO BID Qty: 180 3RF Date of admission: 05/27/25 19:45 Primary Care Provider: Charles Gordon Admitting Provider: Aden Arciniega Attending physician on admission: Aden Arciniega Condition: Stable Quality VTE Prophylaxis VTE prophylaxis: mechanical ordered
[2025-05-29 08:30] VITALS: PULSE 78
[2025-05-29] MEDS: CALCIUM CARBONATE (OSCAL) 250 MG TABLET PO (08:30)
[2025-05-29] MEDS: ACETAMINOPHEN 325 MG TABLET 650 MG PO (08:30)
--- NOTE | 2025-05-29 10:06 | P.PNGS_ITS ---
Progress Note: A&P Assessment and Plan (1) Acute appendicitis: Code(s): K35.80 - Unspecified acute appendicitis Status: Acute Assessment and Plan: * Pod 1 status post laparoscopic appendectomy. WBC normal. Afebrile. Voiding independently now. Ambulating without assistance. Patient is surgically stable for discharge. She will follow up in clinic with Dr. Lal in 2 weeks. (2) IBS (irritable bowel syndrome): Qualifiers: Irritable bowel syndrome type: with diarrhea Qualified Code(s): K58.0 - Irritable bowel syndrome with diarrhea Code(s): K58.9 - Irritable bowel syndrome, unspecified Status: Chronic Assessment and Plan: * History of IBS and has been seen by GI many times in the past. She has a long- standing history of constipation and there is a significant amount of stool in her colon on CT. Patient recently restarted Metamucil OTC, which she has not taken since her colectomy, and plans to f/u with her PCP. Patient did have 1 bowel movement charted on 05/28. (3) Hypertension: Qualifiers: Hypertension type: essential hypertension Qualified Code(s): I10 - Essential (primary) hypertension Code(s): I10 - Essential (primary) hypertension Status: Chronic Plan I have discussed the patient's case and plan of care with Dr. Lal. Subjective Subjective Date/Time Seen: 05/29/25 10:06 Patient reports: no new complaints and feels better Interval history: Patient is doing well today. Notes some mild abdominal soreness and some bloating/swelling. Noted some gas pains. Overnight, patient did have to be straight cathed due to retention of roughly 300 mL of urine. 220 mL were expelled. Patient has voided independently multiple times since being catheterized. Exam Const: General: comfortable and no acute distress Neck: Neck: supple and no JVD Resp: Effort & Inspection: normal respiratory effort Cardio: Rate: regular rate GI: Inspection: non-distended GI Palp: Yes Soft to palpation, Yes Tenderness to palpation present (GI) (Mild tenderness to incision), No Guarding due to palpation present (GI) and No Hernia present Auscultation: normal bowel sounds Other: Slightly more swelling to left lower abdomen than right Objective Data Vital Signs Vital Signs: Vital Signs - 24 hr 05/28/25 10:55 05/28/25 12:19 05/28/25 12:30 Temperature 98.9 F 97.8 F Pulse Rate 75 85 81 Respiratory Rate 16 15 15 Blood Pressure 156/72 H 139/79 148/83 H Pulse Oximetry 97 95 100 Oxygen Delivery Room Air Simple Face Mask Simple Face Mask Oxygen Flow Rate 8 8 05/28/25 12:45 05/28/25 13:00 05/28/25 13:15 Temperature Pulse Rate 80 83 80 Respiratory Rate 18 20 16 Blood Pressure 142/84 H 133/89 155/85 H Pulse Oximetry 100 95 98 Oxygen Delivery Simple Face Mask Room Air Nasal Cannula Oxygen Flow Rate 8 2 05/28/25 13:30 05/28/25 13:45 05/28/25 13:55 Temperature Pulse Rate 85 84 83 Respiratory Rate 18 20 14 Blood Pressure 146/97 H 146/78 H 159/94 H Pulse Oximetry 99 97 98 Oxygen Delivery Nasal Cannula Nasal Cannula Nasal Cannula Oxygen Flow Rate 2 2 2 05/28/25 14:13 05/28/25 15:55 05/28/25 19:43 Temperature 97.7 F 98.0 F 98.1 F Pulse Rate 77 74 Respiratory Rate 12 12 18 Blood Pressure 170/86 H 135/60 117/54 L Pulse Oximetry 97 92 96 Oxygen Delivery Oxygen Flow Rate 05/28/25 20:00 05/28/25 20:28 05/28/25 23:30 Temperature 98.6 F Pulse Rate 75 76 Respiratory Rate 16 Blood Pressure 121/52 L Pulse Oximetry 96 Oxygen Delivery Room Air Oxygen Flow Rate 05/29/25 03:43 05/29/25 07:43 05/29/25 08:00 Temperature 98.4 F 98 F Pulse Rate 72 81 Respiratory Rate 16 16 Blood Pressure 113/66 115/58 L Pulse Oximetry 96 97 Oxygen Delivery Room Air Oxygen Flow Rate 05/29/25 08:30 Temperature Pulse Rate 78 Respiratory Rate Blood Pressure Pulse Oximetry Oxygen Delivery Oxygen Flow Rate Intake/Output Intake/Output: Intake & Output 05/26/25 05/27/25 05/28/25 05/29/25 23:59 23:59 23:59 23:59 Intake Total 1050 2068 400 Output Total 520 Balance 1050 1548 400 Meds/Results Medications: Active Medications Generic Name Dose Route Start Last Admin Trade Name Freq PRN Reason Stop Dose Admin Acetaminophen 650 mg 05/27/25 19:45 05/29/25 08:30 Acetaminophen 325 Mg Tablet PO 650 mg Q4H PRN Administration Mild Pain (1-3) or Fever Hydrocodone Bitart/Acetaminophen 1 tab 05/28/25 13:58 05/29/25 05:57 Hydrocodone/Acetaminophen (*Crx) 5-325 Mg Tablet PO 1 tab Q4H PRN Administration Pain Rated 4-6 Hydrocodone Bitart/Acetaminophen 1 tab 05/28/25 13:58 Hydrocodone/Acetaminophen (*Crx) 7.5-325 Mg Tablet PO Q4H PRN Pain Rated 7-10 Acyclovir 1 applic 05/27/25 23:07 Acyclovir 5% Ointment 15 Gm Tube TOPICAL BID PRN cold sores Calcium Carbonate 250 mg 05/28/25 09:00 05/29/25 08:30 Calcium Carbonate (Oscal) 250 Mg Tablet PO 250 mg BID NURIA Administration Carvedilol 6.25 mg 05/27/25 23:10 05/29/25 08:30 Carvedilol 6.25 Mg Tablet PO 6.25 mg Q12HR NURIA Administration Dicyclomine HCl 10 mg 05/27/25 23:07 Dicyclomine Hcl 10 Mg Capsule PO BID PRN Abdominal Discomfort Fentanyl Citrate 25 mcg 05/28/25 12:30 05/28/25 13:39 Fentanyl Citrate Inj (*Crx) 100 Mcg/2 Ml Vial IV PUSH 25 mcg Q2M PRN Administration Pain Metronidazole 500 mg in 100 mls @ 100 mls/hr 05/28/25 06:00 05/29/25 05:51 Flagyl 500 Mg/Iso Soln 100 Ml IVPB 100 mls/hr Q8HR NURIA Administration Ceftriaxone Sodium 1 gm/ 50 mls @ 100 mls/hr 05/28/25 20:00 05/28/25 20:29 Sodium Chloride IVPB 100 mls/hr Q24H NURIA Administration Lisinopril 10 mg 05/27/25 23:15 05/29/25 08:30 Lisinopril 10 Mg Tablet PO 10 mg Q12HR NURIA Administration Morphine Sulfate 2 mg 05/28/25 13:58 Morphine Sulfate (*Crx) 2 Mg/Ml Inj IV PUSH Q2H PRN Breakthrough Pain Rated 4-6 or NPO Morphine Sulfate 4 mg 05/28/25 13:58 Morphine Sulfate (*Crx) 4 Mg/Ml Inj IV PUSH Q2H PRN Breakthrough Pain Rated 7-10 or NPO Naloxone HCl 0.1 mg 05/28/25 13:58 Naloxone Hcl 0.4 Mg/Ml Vial IV PUSH Q2M PRN Opiate Reversal Ondansetron HCl 4 mg 05/27/25 19:45 Ondansetron Inj 4 Mg/2 Ml Vial IV PUSH Q4H PRN Nausea Ondansetron HCl 4 mg 05/28/25 12:30 Ondansetron Inj 4 Mg/2 Ml Vial IV PUSH ONCE PRN Nausea Radiology Results: ITS Impressions Abdomen/Pelvis CT 05/27/25 18:25 IMPRESSION: Findings in the appropriate clinical scenario suggesting acute nonruptured appendicitis, as detailed above. Labs Labs: Laboratory Results - last 24 hr 05/29/25 05/29/25 05:10 05:11 WBC 8.1 RBC 3.16 L Hgb 9.5 L Hct 30.2 L MCV 95.6 MCH 30.1 MCHC 31.5 L RDW 12.6 Plt Count 201 MPV 10.0 Immature Gran % (Auto) 0.4 Neut % (Auto) 67.4 Lymph % (Auto) 17.8 L [place] % (Auto) 10.4 H Eos % (Auto) 3.1 Baso % (Auto) 0.9 Lymph # (Auto) 1.44 [place] # (Auto) 0.8 H Eos # (Auto) 0.3 Baso # (Auto) 0.1 Abs Immat Gran (auto) 0.03 Absolute Neuts (auto) 5.5 Absolute Nucleated RBC 0.000 Nucleated RBC % 0.0 Sodium 135 L Potassium 3.8 Chloride 106 Carbon Dioxide 27 Anion Gap 2 L BUN 5 L Creatinine 0.65 L Estim Creat Clear Calc 58 Estimated GFR > 60 Glucose 103 Calcium 8.4 Magnesium 1.8 Total Bilirubin 0.3 AST 23 ALT 19 Alkaline Phosphatase 60 Total Protein 5.1 L Albumin 2.9 L
== END 2025-05-29 13:00 | disposition home or self-care (01) ==
LOC: ANHED 19:57 → ANH2MED 20:30
PROVIDERS: Nurse Practitioner; Registered Nurse; Surgery; Admitting Provider Family Medicine; Emergency Provider Student in an Organized Health Care Education/Training Program; PCP Internal Medicine; Visit Provider Family Medicine
PROC: 0DTJ4ZZ Resection of Appendix, Percutaneous Endoscopic Approach (ICD-10-PCS; CPT 44970; principal; 2025-05-28 11:00)
DX: K35.80 Unspecified acute appendicitis (principal); E87.1 Hypo-osmolality and hyponatremia; I10 Essential (primary) hypertension; K58.9 Irritable bowel syndrome, unspecified; Z87.891 Personal history of nicotine dependence
CPT/HCPCS: 44970; 36415; 74177; 80053; 81001; 83605; 83690; 83735; 85025; 85610; 85730; 87040; 87086; 88304; 93005; 96361; 96365; 96366; 96367; 96375; 96376; 99285; A9270; G0378; J0696; J1596; J1836; J2003; J2270; J2312; J2405; J2704; J3010; J7030; J7120; Q9967